=== PATIENT | male | born 1970 | race Caucasian/White ===

== ENCOUNTER 2023-04-24 09:27 | Inpatient (IN) | payer OTHER, SELFPAY ==
[2023-04-24] VITALS (10 sets, daily range): BP systolic 118–144; BP diastolic 65–90; PULSE 74–92; RESP 14–20; TEMP 36.5–37.1; O2SAT 86–98; BMI 47.2; BMI 44.4
--- NOTE | 2023-04-24 09:40 | CT_ITS ---
STUDY: CT LUMBAR SPINE WITHOUT CONTRAST REASON FOR EXAM: Male, 52 years old. Fall/trauma, neuro deficit BLE RADIATION DOSAGE (If Supplied By Facility): CTDIvol = ( 54.78 ) mGy, DLP = ( 1811.04 ) mGycm TECHNIQUE: The patient was scanned in a multi detector CT scanner. High resolution transaxial imaging was performed. Images were obtained from T12 vertebral level to S1 vertebral level. Sagittal and coronal images were reconstructed. Individualized dose optimization techniques were used for this CT. COMPARISON: None FINDINGS: Normal lumbar lordosis. There is no substantial scoliosis. Normal vertebrae of the lumbar spine. L1-2: Facet joint osteoarthritis and hypertrophy. Mild degree of bilateral neural foraminal stenosis. L2-3: Anterior spondylosis. Minimal disc space narrowing. No significant stenosis seen. L3-4: Anterior spondylosis. Facet joint osteoarthritis and hypertrophy mild to moderate degree of bilateral neural foraminal stenosis and posterior central canal stenosis due to hypertrophy of the ligamentum flavum. L4-5: Facet joint osteoarthritis and hypertrophy. Moderate degree of bilateral neural foraminal stenosis. Minimal diffuse posterior disc bulge. L5-S1: Facet joint osteoarthritis and hypertrophy. Bilateral neural foraminal stenosis. Normal visualized paraspinous soft tissue structures. CT/Spine Lumbar without Contrast IMPRESSION: Multilevel degenerative changes, as described above. Electronically Signed: Alex Colorado MD at 10:41 EST ,
--- NOTE | 2023-04-24 09:40 | RAD_ITS ---
STUDY: X-RAY - LEFT ANKLE REASON FOR EXAM: Male, 52 years old. Injury TECHNIQUE: 3 view(s) of the ankle. COMPARISON: None. FINDINGS: Findings suggestive of old injury of the medial malleolus. Normal medial and lateral malleoli. Normal tibiotalar articulation and ankle mortise. Calcaneal spurs. The visualized subtalar, talonavicular, calcaneocuboid and tarsal articulations are normal. The soft tissue structures are unremarkable. RAD/Ankle min 3 Views IMPRESSION: No acute abnormality is seen. Electronically Signed: Alex Colorado MD at 10:44 EST ,
--- NOTE | 2023-04-24 09:41 | ED.VIS.FALL ---
HPI HPI - Fall History of Present Illness Chief Complaint: Fall Informant: patient and EMS Narrative Narrative: Patient had a work-related fall. He states he just stepped off of a step, either slipped or left ankle gave out causing him to fall, he is not sure how he landed but when he did, he felt a snap in his low back and has had numbness tingling and burning pain from there all the way down to both lower extremities including his feet ever since. No weakness or numbness prior to this fall. Most of his pain is in his back and waist, comes all the way around. He does have pain in his left ankle as well. He was unable to get up from the ground and presents by EMS. Denies any recent illness. He denies loss of bowel or bladder continence. PFSH PFSH Medical History Gout Rheumatoid arthritis Allergy/AdvReac Type Severity Reaction Status Date / Time No Known Allergies Allergy Verified 04/24/23 09:28 Surgical History Hx of tonsillectomy Social History Smoking Status: Never smoker ROS ROS ED Constitutional Constitutional ED: Denies chills or fever(s) Eyes Eyes: Denies change in vision or diplopia ENT ENT ED: Denies ear pain, epistaxis, facial pain or rhinorrhea Cardiovascular Cardiovascular: Denies chest pain or palpitations Respiratory/Chest Respiratory/Chest: Denies cough or dyspnea Gastrointestinal Gastrointestinal: Denies abdominal pain, diarrhea, melena, nausea or vomiting Genitourinary Genitourinary ED: Denies dysuria or hematuria Musculoskeletal Musculoskeletal: Reports back pain and extremity pain; Denies neck pain Integumentary Denies abscess, Abrasions, laceration or rash Neurologic Neurologic: Reports paresthesias RLE and LLE and weakness; Denies confusion or headache(s) EXAM Physical Exam Const Vital Signs: 04/24/23 09:30 04/24/23 09:30 Temperature 98.4 F Temperature Source Oral Pulse Rate 92 Respiratory Rate 20 H Respiratory Effort Normal Non-Labored Blood Pressure 144/90 H Blood Pressure Mean 108 Pulse Ox 94 95 Oxygen Delivery Method Room Air Room Air Positive well nourished, well developed and obese General Appearance ED: well developed and NAD Nutritional Appearance: obese HEENT Reports TM's clear and nasal mucous membranes and turbinates normal atraumatic Face and Sinus: Negative for facial tenderness Tympanic Membrane ED: Yes TM's clear Eyes PERRL and EOMs intact bilaterally Visual Acuity: other Other Details: no entrapment or pain with extraocular movements Neck full ROM and supple General: Negative for tenderness Chest Wall inspection of chest normal and palpation of chest normal Chest: symmetrical chest wall rise; Negative for crepitus or tenderness Resp normal respiratory effort and clear to auscultation bilaterally Percussion: other equal BS bilat Cardio no murmurs Cardio Narrative: Bilateral 2+/4 dorsalis pedis and radial pulses Rate: regular rate Rhythm: regular rhythm GI normal to inspection, nondistended, normoactive bowel sounds, soft to palpation and non-tender Back/Spine normal ROM Back/Spine Narrative: Lumbar midline tenderness without obvious palpable step-off or signs of injury, no coccygeal/sacral focal bony tenderness. Cervical Spine: Negative for cervical spine tenderness Thoracic Spine / Upper Back: Negative for thoracic spinal tenderness Lumbar Spine / Lower Back: lumbar spinal tenderness L1, L2, L3 and L4 Extremity normal to inspection and full ROM Extremity Narrative: L ankle medial malleolus. Nontender lateral malleolus, base of the metatarsal, rest of the mid and forefoot, and the proximal fibula. All other joints and bony prominences of all 4 extremities are nontender, and without pain with ranging. When ranging his hips, he has some pain in his general pelvis area, the same burning numbness that he complains of throughout his legs. Able to range the left ankle. No deformity. General Extremety ED: Yes tenderness Neuro oriented x3, CN's II-XII intact bilaterally, moves all extremities and no focal motor deficits Neuro Narrative: Decreased sensation although it is grossly intact, bilateral lower extremities as well as perineum and lower abdominal wall, very distal. At the level of the umbilicus and several inches below this, sensation is intact and normal. He has pain with superficial skin palpation, suggesting dysesthesia below the level of approximately T11. Bilateral lower extremity DTRs are normal. No clonus. Downgoing toes with Babinski bilaterally. With regards to weakness, he is moving his legs well, all muscle groups seem to move with good strength, however he is limited somewhat due to pain in his back, so difficult to assess for details whether he is 5/5, 4+ or 4/5, etc. His strength is symmetric bilaterally. Perianal sensation is decreased, but normal rectal tone and anal wink. Devang Coma Scale: document GCS findings Spontaneous Obeys Commands Oriented 15 Sensorium / Orientation: awake and alert Psych mental status grossly normal and thought process normal Skin Skin Narrative: abrasions to left index and ring fingers, no lacerations Lesions: no lesions Rashes: no rashes MDM MDM MDM Narrative Medical decision making narrative: 1 view x-ray of the patient's pelvis is negative for acute fracture my interpretation, three-view x-ray of the left ankle was negative for acute fracture on my interpretation. Radiology in agreement. I skipped x-rays in favor of a CT of his lumbar spine however, given his neurologic symptoms. I reviewed the images and the report and I agree with it, it is negative for acute fracture. Patient has a sensory level, and he is starting to get spasms of his right lower extremity which I think may be neurologic. His DTRs are intact, strength seems good, but a stat MRI is indicated. He is sent for that, and in the meantime we are treating his pain. I reviewed the images of the MRI as well as the radiology report which I agree with, there is a discrete lesion coming from the posterior aspect of the spinal canal, impinging somewhat on the spinal cord without maritza compression but touching it, it is at the T10-11 level, consistent with the patient's approximate T11-12 sensory level clinically. I discussed with Dr. Bar on for spine, he reviewed the images and agrees that the patient requires a laminectomy. We will keep him n.p.o. and provide IV fluids and analgesia, plan for operating room either today or tomorrow, requested that I speak with hospitalist concerning admission. Discussed indication for steroids with Dr. Bar, he advises not to give steroids at this time. Lab Data Attestation: I reviewed the patient's lab results. Labs: Laboratory Results - last 24 hr 04/24/23 09:50 WBC 8.2 RBC 5.05 Hgb 14.5 Hct 45.7 MCV 90.5 MCH 28.7 MCHC 31.7 L RDW Std Deviation 43.7 RDW Coeff of Vasiliy 13.2 Plt Count 217 MPV 9.9 Immature Gran % (Auto) 0.500 Neut % (Auto) 66.1 Lymph % (Auto) 21.7 Converse % (Auto) 9.4 Eos % (Auto) 1.6 Baso % (Auto) 0.7 Absolute Neuts (auto) 5.4 Absolute Lymphs (auto) 1.79 Nucleated RBC % 0 Sodium 144 Potassium 4.1 Chloride 113 H Carbon Dioxide 26.0 Anion Gap 5 BUN 21 H Creatinine 1.52 H Estim Creat Clear Calc 58.70 Est GFR (MDRD) Af Amer 62 Est GFR (MDRD) Non-Af 51 L BUN/Creatinine Ratio 13.8 Glucose 159 H Calcium 8.8 Radiography Diagnostic Testing: Clinical Impression(s) from Imaging Studies Ankle X-Ray 04/24/23 09:40 IMPRESSION: No acute abnormality is seen. Electronically Signed: Alex Colorado MD at 10:44 EST , Lumbar Spine CT 04/24/23 09:40 IMPRESSION: Multilevel degenerative changes, as described above. Electronically Signed: Alex Colorado MD at 10:41 EST , Pelvis X-Ray 04/24/23 09:42 IMPRESSION: Joint space narrowing of both hip joints. Electronically Signed: Alex Colorado MD at 10:43 EST , Lumbar Spine MRI 04/24/23 11:08 IMPRESSION: 1. No MRI evidence of lumbar extruded disc fragment, disc protrusion or nerve root displacement. 2. Mild central canal stenosis at L4-L5 disc space level with an AP canal diameter of 10 mm secondary to mild dorsal epidural lipomatosis and developmentally short pedicles. Mild stenosis of the bilateral L4-L5 intervertebral neural foramina due to bilateral degenerative facet hypertrophy. 3. Mild stenosis of the bilateral L5-S1 intervertebral neural foramina due to osteophytic encroachment coming from the S1 superior articular facets. 4. Prominent right dorsolateral extradural defect at T10-T11 disc space level due to ossification of right posterior ligamentum flavum hypertrophy and moderate central canal stenosis with an AP canal diameter 7.4 mm. 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
--- NOTE | 2023-04-24 09:42 | RAD_ITS ---
STUDY: X-RAY - PELVIS REASON FOR EXAM: Male, 52 years old. Fall/injury TECHNIQUE: One view of the pelvis was obtained. COMPARISON: None. FINDINGS: There is a non-specific bowel gas pattern. Normal visualized soft tissue structures. Normal bilateral iliac wings, sacroiliac joints and visualized sacrum. Normal visualized bilateral superior and inferior pubic rami. Normal pubic symphysis. Normal ischial tuberosities. Normal visualized right femoral head. There is osteoarthritic spur formation of the right acetabular rim. There is mild articular joint space narrowing of the right hip. Normal visualized left femoral head. There is osteoarthritic spur formation of the left acetabular rim. There is mild articular joint space narrowing of the left hip. RAD/Pelvis 1 or 2 Views IMPRESSION: Joint space narrowing of both hip joints. Electronically Signed: Alex Colorado MD at 10:43 EST ,
[2023-04-24] MEDS: Ondansetron 4 MG/2 ML Vial IV (09:48)
[2023-04-24] MEDS: Morphine 4 MG/ML Syringe IV (09:49)
[2023-04-24 10:00] LABS: Absolute Lymphocyte Count 1.79 X10^3/uL (0.83-4.51); Absolute Neutrophil Count 5.4 X10^3/uL (2.0-7.7); Basophil# 0.06 X10^3/uL; Basophil% 0.7 % (0-1); Eosinophil# 0.13 X10^3/uL; Eosinophils% 1.6 % (0-5); Hematocrit 45.7 % (40-54); Hemoglobin 14.5 g/dL (13.0-16.5); Lymphocyte # 1.79 X10^3/ul (0.83-4.51); Lymphocyte % 21.7 % (19-41); Mean Corp Hgb Conc 31.7 g/dL (32-36); Mean Corpuscular Hgb 28.7 pg (27.0-32.0); Mean Corpuscular Volume 90.5 fL (80-94); Mean Platelet Vol. 9.9 fl (6.2-12.0); Monocyte# 0.77 X10^3/uL; Monocyte% 9.4 % (0-10); NRBC Flagged by Analyzer 0 % (0-5); Neutrophil # 5.44 X10^3/uL (2.7-7.7); Neutrophil % 66.1 % (47-70); Platelet Count 217 K/mm3 (150-450); RBC Distribution Width CV 13.2 % (11.6-14.6); RBC Distribution Width SD 43.7 fl (35.1-43.9); Red Blood Count 5.05 M/mm3 (4.6-6.2); White Blood Count 8.2 K/mm3 (4.4-11.0)
[2023-04-24 10:18] LABS: Anion Gap 5 (5-15); BUN 21 mg/dL (7-18); BUN/Creat Ratio 13.8 RATIO (10-20); Calcium,Total 8.8 mg/dL (8.5-10.1); Chloride 113 mmol/L (98-107); Creatinine, Serum 1.52 mg/dL (0.70-1.30); EST Glomerular Filtration Rate 51 mL/min (>60); Est Glom Filt Rate - Afr Amer 62 mL/min (>60); Glucose 159 mg/dL (74-106); Potassium 4.1 mmol/L (3.5-5.1); Sodium Level 144 mmol/L (136-145)
--- NOTE | 2023-04-24 11:08 | MRI_ITS ---
STUDY: MRI LUMBAR SPINE WITHOUT CONTRAST REASON FOR EXAM: Male, 52 years old. Low back injury, numbness T12 level down TECHNIQUE: Standardized fat and water weighted pulse sequences were obtained in the sagittal and axial planes. COMPARISON: CT lumbar spine without contrast 04/24/2023. FINDINGS: T10-T11: Normal endplates. Normal disc height, hydration and morphology. No ventral extradural defect but there is prominent right dorsolateral extradural defect suspiciously due to ossified ligamentum flavum. There is no associated cord compression but it is touching the dorsal surface of the spinal cord. Moderate right degenerative facet arthropathy. No significant left facet arthropathy. Moderate central canal stenosis with an AP canal diameter 7.4 mm. Normal bilateral lateral recesses. Normal bilateral intervertebral neural foramina. T11-T12: Normal endplates. Normal disc height, hydration and morphology. Mild right degenerative facet arthropathy. Normal left facet joint. Mild dorsal epidural lipomatosis. Normal central canal and bilateral lateral recesses. Normal bilateral intervertebral neural foramina. T12-L1: Normal endplates. Normal disc height, hydration and morphology. Normal bilateral facet joints. Normal central canal and bilateral lateral recesses. Normal bilateral intervertebral neural foramina. Normal lumbar lordosis. There is no substantial scoliosis. Normal conus medullaris that terminates at the mid L1 vertebral body level. L1-2: Normal endplates. Normal disc height, hydration and morphology. Normal bilateral facet joints. Normal central canal and bilateral lateral recesses. Normal bilateral intervertebral neural foramina. L2-3: Normal endplates. Normal disc height, hydration and morphology. Normal bilateral facet joints. Normal central canal and bilateral lateral recesses. Normal bilateral intervertebral neural foramina. L3-4: Normal endplates. Normal disc height, hydration and morphology. Normal bilateral facet joints. Normal central canal and bilateral lateral recesses. Normal bilateral intervertebral neural foramina. L4-5: Normal endplates. Normal disc height, hydration and morphology. No ventral extradural defect. Moderate asymmetric degenerative facet arthropathy. Mild dorsal epidural lipomatosis. Mild central canal stenosis with an AP canal diameter of 10 mm. Normal bilateral lateral recesses. Mild stenosis of the bilateral intervertebral neural foramina due to degenerative facet hypertrophy. L5-S1: Normal endplates. Normal disc height, hydration and morphology. Moderate right degenerative facet hypertrophy. Normal central canal and bilateral lateral recesses. Mild stenosis of the bilateral intervertebral neural foramina due to osteophytic encroachment coming from the S1 superior articular facets. Normal visualized sacral ala. Normal visualized paraspinous soft tissue structures. MRI/Spine Lumbar (Routine) IMPRESSION: 1. No MRI evidence of lumbar extruded disc fragment, disc protrusion or nerve root displacement. 2. Mild central canal stenosis at L4-L5 disc space level with an AP canal diameter of 10 mm secondary to mild dorsal epidural lipomatosis and developmentally short pedicles. Mild stenosis of the bilateral L4-L5 intervertebral neural foramina due to bilateral degenerative facet hypertrophy. 3. Mild stenosis of the bilateral L5-S1 intervertebral neural foramina due to osteophytic encroachment coming from the S1 superior articular facets. 4. Prominent right dorsolateral extradural defect at T10-T11 disc space level due to ossification of right posterior ligamentum flavum hypertrophy and moderate central canal stenosis with an AP canal diameter 7.4 mm. Electronically Signed: Braxton Carmichael MD at 12:53 EST ,
[2023-04-24] MEDS: HYDROmorphone 1 MG/ML Syringe IV ×2 (11:15→13:45)
[2023-04-24] MEDS: 0.9% Normal Saline (1000mL) 1,000 ML 100 ML IV (13:45)
--- NOTE | 2023-04-24 13:55 | PCM.HP.STD ---
HPI - General General Date of Admission: 04/24/23 Date of Service: 04/24/23 Chief Complaint: Thoracic and lumbar back pain after mechanical fall HPI Narrative KYLEIGH DE LEON, is a 52 M who presented to [facility] ED on 04/24/2023 with mid to low back pain after a mechanical fall. Patient seen at bedside in ED. Patient laying on his side in bed, conversing normally. Patient does not appear to be in acute distress but states he is limiting his movement, because he has a moderate level of mid to low back pain with movement. Patient does report paresthesias down both legs at this time. Patient states that he slept earlier today at work when he stepped awkwardly off of a step on the stairs. He is not sure how he landed but felt a snap in his mid to low back at that time. He has had numbness and tingling with burning pain in the low back and down his leg since that time. Patient denies any history of back injuries like this before. Patient lives at home with his in [place]. Patient is morbidly obese but has no significant issues with ambulation or completing ADLs at home. Patient otherwise denies bowel or bladder incontinence. Denies any chest pain, shortness of breath, fevers or chills, abdominal pain or discomfort. No other acute concerns at this time. [facility] Medical History (Updated 04/24/23 @ 18:33 by Calli Holcomb) Gout Migraines Non-smoker Rheumatoid arthritis Home Medications adalimumab 40 mg/0.4 mL subcutaneous pen kit (Humira(CF) Pen) 40 mg subcut Q7D rheumatoid arthritis 04/24/23 [History Last Taken 04/18/23] duloxetine 30 mg capsule,delayed release 30 mg PO DAILY rheumatoid arthritis 04/24/23 [History Last Taken 04/23/23] hydroxychloroquine 200 mg tablet 200 mg PO DAILY gout 04/24/23 [History Last Taken 04/24/23] prednisone 20 mg tablet 20 mg PO PRN gout 04/24/23 [History Last Taken Unknown] probenecid 200 mg DAILY gout 04/24/23 [History Last Taken 04/24/23] Allergy/AdvReac Type Severity Reaction Status Date / Time No Known Allergies Allergy Verified 04/24/23 18:34 Surgical History Hx of tonsillectomy Social History Smoking Status: Never smoker ROS Constitutional Constitutional: Denies chills, fatigue, fever(s) or weakness Eyes Eyes: Denies change in vision Cardiovascular Cardiovascular: Denies chest pain Respiratory/Chest Respiratory/Chest: Denies cough, shortness of breath at rest or shortness of breath with exertion Gastrointestinal Gastrointestinal: Denies abdominal pain Musculoskeletal Musculoskeletal: Reports back pain Neurologic Neurologic: Reports abnormal gait, numbness, paresthesias and tingling; Denies dizziness or focal weakness Vital Signs Vital Signs Vital Signs: 04/24/23 09:30 04/24/23 09:30 Temperature 98.4 F Temperature Source Oral Pulse Rate 92 Respiratory Rate 20 H Respiratory Effort Normal Non-Labored Blood Pressure 144/90 H Blood Pressure Mean 108 Pulse Ox 94 95 Oxygen Delivery Method Room Air Room Air Weight Weight: 149.3 kg Body Mass Index (BMI) 47.2 Physical Exam Const alert and oriented x3 Constitutional Narrative: Pleasant middle-age male, morbidly obese, laying on his side in bed, conversing normally. Patient appears to be in mild distress due to low back pain with any movement during my exam. General Appearance: cooperative HEENT normocephalic, head/scalp atraumatic, hearing grossly normal bilaterally, nasal mucous membranes and turbinates normal and moist oral mucous membranes Eyes PERRL, EOMs intact bilaterally and conjunctivae normal Neck full ROM, no lymphadenopathy and supple Lymph Lymphatic: no lymphadenopathy noted Chest inspection of chest normal Resp normal respiratory effort, normal air movement, no use of accessory muscles and clear to auscultation bilaterally Cardio regular rate, regular rhythm, no murmurs and peripheral pulses 2+ throughout GI normal to inspection, nondistended, normoactive bowel sounds, soft to palpation, non-tender and non-distended no CVA tenderness Back/Spine Back/Spine Narrative: Mild to moderate tenderness with outpatient down spinous processes of upper thoracic into lumbar vertebrae. Per muscular tenderness noted bilaterally in L-spine region. No severe point tenderness of any vertebrae. Extremity normal to inspection, full ROM and no pedal edema Skin no rashes or lesions noted Neuro moves all extremities and no focal motor deficits Speech: speech normal Psych mental status grossly normal Results Lab / Micro Data 04/24/23 09:50 04/24/23 09:50 Labs: Laboratory Results - last 24 hr 04/24/23 09:50: WBC 8.2, RBC 5.05, Hgb 14.5, Hct 45.7, MCV 90.5, MCH 28.7, MCHC 31.7 L, RDW Std Deviation 43.7, RDW Coeff of Vasiliy 13.2, Plt Count 217, MPV 9.9, Immature Gran % (Auto) 0.500, Neut % (Auto) 66.1, Lymph % (Auto) 21.7, Perkins % (Auto) 9.4, Eos % (Auto) 1.6, Baso % (Auto) 0.7, Absolute Neuts (auto) 5.4, Absolute Lymphs (auto) 1.79, Nucleated RBC % 0, Sodium 144, Potassium 4.1, Chloride 113 H, Carbon Dioxide 26.0, Anion Gap 5, BUN 21 H, Creatinine 1.52 H, Estim Creat Clear Calc 58.70, Est GFR (MDRD) Af Amer 62, Est GFR (MDRD) Non-Af 51 L, BUN/Creatinine Ratio 13.8, Glucose 159 H, Calcium 8.8 Imagaing Radiology Impression Ankle X-Ray 04/24/23 09:40 IMPRESSION: No acute abnormality is seen. Electronically Signed: Alex Colorado MD at 10:44 EST , Lumbar Spine CT 04/24/23 09:40 IMPRESSION: Multilevel degenerative changes, as described above. Electronically Signed: Alex Colorado MD at 10:41 EST , Pelvis X-Ray 04/24/23 09:42 IMPRESSION: Joint space narrowing of both hip joints. Electronically Signed: Alex Colorado MD at 10:43 EST , Lumbar Spine MRI 04/24/23 11:08 IMPRESSION: 1. No MRI evidence of lumbar extruded disc fragment, disc protrusion or nerve root displacement. 2. Mild central canal stenosis at L4-L5 disc space level with an AP canal diameter of 10 mm secondary to mild dorsal epidural lipomatosis and developmentally short pedicles. Mild stenosis of the bilateral L4-L5 intervertebral neural foramina due to bilateral degenerative facet hypertrophy. 3. Mild stenosis of the bilateral L5-S1 intervertebral neural foramina due to osteophytic encroachment coming from the S1 superior articular facets. 4. Prominent right dorsolateral extradural defect at T10-T11 disc space level due to ossification of right posterior ligamentum flavum hypertrophy and moderate central canal stenosis with an AP canal diameter 7.4 mm. Electronically Signed: Braxton Carmichael MD at 12:53 EST , Assessment & Plan Assessment/Plan (1) Thoracic spinal stenosis: (2) Injury of back due to fall: PLAN: Plan Patient is a 52-year-old male who presented to [facility] ED on 03/28/2023 with low back pain after a fall. 1. Acute thoracic and lumbar back pain, thoracic spinal stenosis Secondary to mechanical fall on day of admission. L-spine MRI in ED showed prominent defect at T10-11 disc space level with moderate central canal stenosis, mild stenosis in the low lumbar area. Patient reports mid to low back pain with bilateral lower extremity paresthesias. Denies urinary or stool incontinence. ? Admit under inpatient status to [facility]. Orthopedic surgery consulted. Dr. Bar evaluated the patient in the ED, planning for T10 laminectomy tomorrow. N.p.o. at midnight. Preoperative evaluation as noted below. Pain control with scheduled Tylenol, as needed p.o. oxycodone and IV Dilaudid. Bowel regimen ordered. Orthopedics also ordered IV Decadron and gabapentin for pain relief. PT/OT/case management consulted. 2. Preoperative evaluation ? NSQIP score: Patient has a below average risk of serious complications or any complications based on risk factors of age, male, mild systemic disease and elevated BMI. ? Labs: Hemoglobin 14.5, mildly elevated creatinine of 1.52 with estimated GFR 51, labs otherwise benign. Follow-up postop CBC and BMP. ? Imaging: See lumbar spine MRI findings above. Pelvic and ankle x-rays normal. Patient stable on room air, no need for chest x-ray. No need for further imaging at this time. ? EKG: EKG in ED showed normal sinus rhythm, no ST changes. ? Echo: Never completed, but has no risk factors or symptoms of heart disease that require echo to be done prior to operation. ? Medications: Okay to continue all of patient's home medications on day of procedure and going forward. ? Previous procedural complications: No previous operations requiring general anesthesia. ? Recommendation: Patient is medically optimized for procedure tomorrow, no further preoperative needs at this time. 3. Elevated creatinine Creatinine 1.52, BUN 21 on admit. Baseline unknown. Patient reports good urine output recently. ? Follow-up a.m. BMP. UA, urine protein to creatinine ratio ordered. 4. Elevated BP BP 140s to 150s systolic in the ED. No previous diagnosis of hypertension per patient. Seems most likely secondary to pain, but unclear if patient could have a degree of underlying essential hypertension. ? Monitor BP. No need to initiate antihypertensives at this time. Chronic medical conditions: ? Morbid obesity: BMI 44 on admit. Complicates care and patient's prognosis. ? Gout: Continue home allopurinol, probenecid. ? Rheumatoid arthritis: Continue home hydroxychloroquine. Okay to continue Humira post discharge. DVT prophylaxis: SCDs CODE STATUS: Full code, verified Expected disposition: TBD. Patient lives at home with his in [place], would like to go home on discharge if able but is open to the possibility of acute rehab if needed. Total clinical time spent by myself addressing the patient's medical issues, reviewing all the data, and collaborating with patient's care team: 55 minutes. Charges/Coding Visit Charges Inpatient E&M: 45404 Init Hosp L2
--- NOTE | 2023-04-24 14:00 | EKG12_ITS ---
Test Reason : Blood Pressure : / mmHG Vent. Rate : 084 BPM Atrial Rate : 089 BPM P-R Int : 152 ms QRS Dur : 116 ms QT Int : 386 ms P-R-T Axes : 049 042 012 degrees QTc Int : 456 ms Normal sinus rhythm with sinus arrhythmia Normal ECG Confirmed by MICHAEL MARIANO, ROBY ([id number]), photograph editor YULY GARCÍA ([id number]) on 04/25/2023 9:32:14 AM Referred By: ADELAIDE Confirmed By:ROBY RODRIGUEZ MD
--- NOTE | 2023-04-24 14:12 | NURSING ---
NO OLD EKGS
--- NOTE | 2023-04-24 14:13 | NURSING ---
MED SURG [facility] [place] SPINAL CORD INJURY
--- NOTE | 2023-04-24 14:23 | ED.RN ---
THIS RN AT PT BEDSIDE, THIS RN CONTACTS PT PER REQUEST. PT INFORMED THAT PT IS BEING PREPPED FOR SURGERY. THIS RN ALSO CALLS PT DENTURE WAXER JHON AND INFORMS HIM AT PT REQUEST. RICHIE PHONE NUMBER [phone]. [facility] TO BE NOTIFIED OF PT ADMISSION AND REQUIREMENT OF DRUG SCREEN FOR WORKMANS COMP.
--- NOTE | 2023-04-24 14:49 | ED.RN ---
THIS RN CONTACTED CORPORATE CARE AT THE [facility]. TOMY INFORMED THAT PATIENT WILL REQUIRE A DRUG SCREEN.
--- NOTE | 2023-04-24 15:47 | CON.PCM.OR_ITS ---
HPI Consult Data Date of Consult: 04/24/23 HPI Narrative HPI Narrative: KYLEIGH DE LEON, is a 52 M who presents with acute back pain and paresthesias of the bilateral lower extremities since a fall today. He states that he stepped off a curb and twisted his left ankle and lost his balance falling to the ground. He states that he had immediate onset of pain in the thoracolumbar region as well as burning and decreased sensation from the waist down. He denies head trauma or loss of consciousness. He was not able to get up after his fall and was brought to the ER by EMS. He was seen and evaluated. Image studies were performed including a lumbar MRI. Orthopedic spine has been consulted for evaluation and management. The patient was seen and examined. He is lying in bed resting comfortably. His pain is minimal while at rest. He describes burning and hypersensitivity in a bandlike distribution across the lower abdomen as well as in the genital area. He also describes mild decrease sensation in the bilateral lower extremities globally. He does state his symptoms have improved significantly since his fall. He denies any history of back surgeries or back injections. He states that he does have a history of mild episodic back pain for which he gets chiropractic treatments. He also has a history of rheumatoid arthritis and sees Dr. Gomez in [place] for this. [facility] Medical History Gout Rheumatoid arthritis Allergy/AdvReac Type Severity Reaction Status Date / Time No Known Allergies Allergy Verified 04/24/23 09:28 Surgical History Hx of tonsillectomy Social History Smoking Status: Never smoker Vital Signs Vital Signs Vital Signs: 04/24/23 09:30 04/24/23 09:30 04/24/23 12:00 Temperature 98.4 F Temperature Source Oral Pulse Rate 92 80 Respiratory Rate 20 H 16 Respiratory Effort Normal Non-Labored Blood Pressure 144/90 H Blood Pressure Mean 108 Pulse Ox 94 95 97 Oxygen Delivery Method Room Air Room Air Room Air 04/24/23 14:00 Temperature Temperature Source Pulse Rate 76 Respiratory Rate 16 Respiratory Effort Blood Pressure Blood Pressure Mean Pulse Ox 98 Oxygen Delivery Method Weight Weight: 329 lb 2.402 oz Body Mass Index (BMI) 47.2 Physical Exam Const alert, oriented x3 and no apparent distress General Appearance: cooperative, comfortable and well kempt HEENT normocephalic and head/scalp atraumatic Eyes EOMs intact bilaterally and conjunctivae normal Neck full ROM General: normal visual inspection Chest inspection of chest normal and palpation of chest normal Resp normal respiratory effort and normal air movement Effort and Inspection: able to speak in complete sentences Cardio regular rate and peripheral pulses 2+ throughout GI soft to palpation, non-tender and non-distended GI Narrative: Patient does have some hypersensitivity to light touch across the lower abdomen. Rectal exam performed by ER staff and reported to have rectal tone Rectal Exam: deferred external exam normal, testes normal, scrotum normal and no scrotal swelling Narrative: The patient does have hypersensitivity to light touch around the genital region Back/Spine Back/Spine Narrative: The patient does complain of some pain in the thoracolumbar region with movement Cervical Spine: cervical ROM normal Thoracic Spine / Upper Back: normal to inspection Lumbar Spine / Lower Back: normal to inspection Extremity normal to inspection, full ROM, normal capillary refill, no clubbing, cyanosis or edema and no calf tenderness Skin no rashes or lesions noted General Skin Exam: no breakdown Neuro oriented x3, CN's II-XII intact bilaterally, moves all extremities, no focal motor deficits, no sensory deficits noted and deep tendon reflexes 2+ bilaterally Neuro Narrative: The patient reports mild decrease sensation globally throughout the lower extremities but sensation is intact in all dermatomes Motor Exam: strength 5/5 throughout and muscle tone normal throughout Lab / Micro Data 04/24/23 09:50 04/24/23 09:50 Labs: Laboratory Results - last 24 hr 04/24/23 09:50: WBC 8.2, RBC 5.05, Hgb 14.5, Hct 45.7, MCV 90.5, MCH 28.7, MCHC 31.7 L, RDW Std Deviation 43.7, RDW Coeff of Vasiliy 13.2, Plt Count 217, MPV 9.9, Immature Gran % (Auto) 0.500, Neut % (Auto) 66.1, Lymph % (Auto) 21.7, Ch[place]ot % (Auto) 9.4, Eos % (Auto) 1.6, Baso % (Auto) 0.7, Absolute Neuts (auto) 5.4, Absolute Lymphs (auto) 1.79, Nucleated RBC % 0, Sodium 144, Potassium 4.1, Chloride 113 H, Carbon Dioxide 26.0, Anion Gap 5, BUN 21 H, Creatinine 1.52 H, Estim Creat Clear Calc 58.70, Est GFR (MDRD) Af Amer 62, Est GFR (MDRD) Non-Af 51 L, BUN/Creatinine Ratio 13.8, Glucose 159 H, Calcium 8.8 04/24/23 10:50: PT 13.0, INR 1.0 Rhythm Strip Rhythm Strip: Sinus Rhythm Rate: 90 Ectopy: None Imagaing Radiology Impression Ankle X-Ray 04/24/23 09:40 IMPRESSION: No acute abnormality is seen. Electronically Signed: Alex Colorado MD at 10:44 EST , Lumbar Spine CT 04/24/23 09:40 IMPRESSION: Multilevel degenerative changes, as described above. Electronically Signed: Alex Colorado MD at 10:41 EST , Pelvis X-Ray 04/24/23 09:42 IMPRESSION: Joint space narrowing of both hip joints. Electronically Signed: Alex Colorado MD at 10:43 EST , Lumbar Spine MRI 04/24/23 11:08 IMPRESSION: 1. No MRI evidence of lumbar extruded disc fragment, disc protrusion or nerve root displacement. 2. Mild central canal stenosis at L4-L5 disc space level with an AP canal diameter of 10 mm secondary to mild dorsal epidural lipomatosis and developmentally short pedicles. Mild stenosis of the bilateral L4-L5 intervertebral neural foramina due to bilateral degenerative facet hypertrophy. 3. Mild stenosis of the bilateral L5-S1 intervertebral neural foramina due to osteophytic encroachment coming from the S1 superior articular facets. 4. Prominent right dorsolateral extradural defect at T10-T11 disc space level due to ossification of right posterior ligamentum flavum hypertrophy and moderate central canal stenosis with an AP canal diameter 7.4 mm. Electronically Signed: Braxton aCrmichael MD at 12:53 EST , Assessment & Plan Assessment/Plan (1) Thoracic spinal stenosis: PLAN: Plan I had a lengthy discussion with the patient. I reviewed his imaging with him. MRI of the lumbar spine dated 04/24/2023 shows significant stenosis at the level of T10, which I feel is contributing to his complaints. After discussing the risk benefits and alternatives and answering all of his questions I recommend a T10 laminectomy decompression. We discussed the procedure in detail along with expected outcome and recovery and he agrees to proceed. The patient has been admitted. I recommend he only get up with assistance. I will order IV Decadron and gabapentin to see if this helps with the symptoms. We will keep him n.p.o. after midnight and plan for surgery tomorrow morning. Discharge will depend on how well the patient is mobilizing after surgery as to whether he goes home to follow-up with me in clinic or possibly for inpatient rehab. He understands and agrees with the treatment plan
[2023-04-24] MEDS: Lactated Ringers 1,000 ML 75 ML IV (18:44)
[2023-04-24] MEDS: Acetaminophen 500 MG Tablet 1000 MG PO (18:44)
[2023-04-24] MEDS: HYDROmorphone 0.5 MG/0.5 ML SYRINGE IV (18:53)
[2023-04-24] MEDS: oxyCODONE 5 MG Tablet PO (21:08)
[2023-04-24] MEDS: Senna Tablet 1 TABLET PO (21:09)
[2023-04-25] VITALS (23 sets, daily range): BP systolic 95–131; BP diastolic 51–86; PULSE 65–100; RESP 12–20; TEMP 36.1–36.9; O2SAT 83–98; BMI 44.4
[2023-04-25] MEDS: oxyCODONE 5 MG Tablet PO ×4 (01:27→20:56)
[2023-04-25] MEDS: Acetaminophen 500 MG Tablet 1000 MG PO ×2 (01:30→16:52)
[2023-04-25 05:27] LABS: Hematocrit 43.8 % (40-54); Hemoglobin 13.5 g/dL (13.0-16.5); Mean Corp Hgb Conc 30.8 g/dL (32-36); Mean Corpuscular Hgb 28.8 pg (27.0-32.0); Mean Corpuscular Volume 93.4 fL (80-94); Mean Platelet Vol. 9.5 fl (6.2-12.0); Platelet Count 184 K/mm3 (150-450); RBC Distribution Width CV 13.5 % (11.6-14.6); RBC Distribution Width SD 46.1 fl (35.1-43.9); Red Blood Count 4.69 M/mm3 (4.6-6.2); White Blood Count 7.4 K/mm3 (4.4-11.0)
[2023-04-25 05:52] LABS: Anion Gap 5 (5-15); BUN 16 mg/dL (7-18); BUN/Creat Ratio 12.6 RATIO (10-20); Calcium,Total 8.2 mg/dL (8.5-10.1); Chloride 112 mmol/L (98-107); Creatinine, Serum 1.27 mg/dL (0.70-1.30); EST Glomerular Filtration Rate 63 mL/min (>60); Est Glom Filt Rate - Afr Amer 76 mL/min (>60); Estimated Creatinine Clearance 70.25 ml/min; Glucose 120 mg/dL (74-106); Sodium Level 144 mmol/L (136-145)
[2023-04-25] MEDS: Lactated Ringers 1,000 ML 75 ML IV ×2 (06:17→13:33)
--- NOTE | 2023-04-25 07:49 | PN.HOSP_ITS ---
Reason for Visit Reason for Visit: Diagnoses Spinal stenosis, thoracic region (04/24/23) Unspecified injury of lower back, initial encounter (04/24/23) Unspecified fall, initial encounter (04/24/23) Subjective Subjective Patient seen postop, when he sleeps he begins to snore slightly and has apneic episodes and sats drop, reports he snores at home, suspect sleep apnea, patient to be started on BiPAP, when he is awake O2 sat adequate Objective Data Objective Data Vital Signs: Vital Signs Temp Pulse Resp BP Pulse Ox O2 Del Method O2 Flow Rate 97.3 F L 70 20 H 129/83 H 96 Nasal Cannula 2 04/25/23 06:11 04/25/23 06:11 04/25/23 06:11 04/25/23 06:11 04/25/23 06:11 04/25/23 06:11 04/25/23 06:11 Oxygen Flow Rate (L/min) 2 Oxygen Delivery Method Nasal Cannula Weight: 140.264 kg Body Mass Index (BMI) 44.4 Intake & Output: Intake and Output for Last 24 Hours 04/23/23 04/24/23 04/25/23 23:59 23:59 23:59 Intake Total 483.33 / 483.33 916.25 / 916.25 Output Total 50 / 50 700 / 700 Balance 433.33 / 433.33 216.25 / 216.25 Lab / Micro Data 04/25/23 05:20 04/25/23 05:20 Labs: Laboratory Results - last 24 hr 04/24/23 09:50: WBC 8.2, RBC 5.05, Hgb 14.5, Hct 45.7, MCV 90.5, MCH 28.7, MCHC 31.7 L, RDW Std Deviation 43.7, RDW Coeff of Vasiliy 13.2, Plt Count 217, MPV 9.9, Immature Gran % (Auto) 0.500, Neut % (Auto) 66.1, Lymph % (Auto) 21.7, Turner % (Auto) 9.4, Eos % (Auto) 1.6, Baso % (Auto) 0.7, Absolute Neuts (auto) 5.4, Absolute Lymphs (auto) 1.79, Nucleated RBC % 0, Sodium 144, Potassium 4.1, Chloride 113 H, Carbon Dioxide 26.0, Anion Gap 5, BUN 21 H, Creatinine 1.52 H, Estim Creat Clear Calc 58.70, Est GFR (MDRD) Af Amer 62, Est GFR (MDRD) Non-Af 51 L, BUN/Creatinine Ratio 13.8, Glucose 159 H, Calcium 8.8 04/24/23 10:50: PT 13.0, INR 1.0 04/25/23 05:20: WBC 7.4, RBC 4.69, Hgb 13.5, Hct 43.8, MCV 93.4, MCH 28.8, MCHC 30.8 L, RDW Std Deviation 46.1 H, RDW Coeff of Vasiliy 13.5, Plt Count 184, MPV 9.5, Sodium 144, Potassium 4.0, Chloride 112 H, Carbon Dioxide 27.0, Anion Gap 5, BUN 16, Creatinine 1.27, Estim Creat Clear Calc 70.25, Est GFR (MDRD) Af Amer 76, Est GFR (MDRD) Non-Af 63, BUN/Creatinine Ratio 12.6, Glucose 120 H, Calcium 8.2 L Radiography Diagnostic Testing: Radiology Impression Ankle X-Ray 04/24/23 09:40 IMPRESSION: No acute abnormality is seen. Electronically Signed: Alex Colorado MD at 10:44 EST , Lumbar Spine CT 04/24/23 09:40 IMPRESSION: Multilevel degenerative changes, as described above. Electronically Signed: Alex Colorado MD at 10:41 EST , Pelvis X-Ray 04/24/23 09:42 IMPRESSION: Joint space narrowing of both hip joints. Electronically Signed: Alex Colorado MD at 10:43 EST , Lumbar Spine MRI 04/24/23 11:08 IMPRESSION: 1. No MRI evidence of lumbar extruded disc fragment, disc protrusion or nerve root displacement. 2. Mild central canal stenosis at L4-L5 disc space level with an AP canal diameter of 10 mm secondary to mild dorsal epidural lipomatosis and developmentally short pedicles. Mild stenosis of the bilateral L4-L5 intervertebral neural foramina due to bilateral degenerative facet hypertrophy. 3. Mild stenosis of the bilateral L5-S1 intervertebral neural foramina due to osteophytic encroachment coming from the S1 superior articular facets. 4. Prominent right dorsolateral extradural defect at T10-T11 disc space level due to ossification of right posterior ligamentum flavum hypertrophy and moderate central canal stenosis with an AP canal diameter 7.4 mm. Electronically Signed: Braxton Carmichael MD at 12:53 EST , Rhythm Strip Rhythm Strip: Sinus Rhythm Rate: 90 Ectopy: None Physical Exam Narrative General: Wakes up and answers questions but tired, seen postop HEENT: Atraumatic, normocephalic Eyes: Anicteric, normal conjunctiva, extraocular movements grossly intact Neck: Supple Respiratory: Clear to auscultation bilaterally, normal respiratory effort but does snore has apneic episodes and sleeping Cardiovascular: Regular rate and rhythm GI: Soft, nontender, nondistended Extremities: No edema Musculoskeletal: Moving all extremities Neuro: No overt focal neurological deficits Skin: No rashes appreciated Psych: Cooperative Assessment & Plan Assessment/Plan (1) Thoracic spinal stenosis: (2) Injury of back due to fall: PLAN: Plan Patient is a 52-year-old male who presented to [facility] ED on 03/28/2023 with low back pain after a fall. #Acute thoracic and lumbar back pain, thoracic spinal stenosis Secondary to mechanical fall on day of admission. L-spine MRI in ED showed prom inent defect at T10-11 disc space level with moderate central canal stenosis, mild stenosis in the low lumbar area. Patient reports mid to low back pain with bilateral lower extremity paresthesias. Denies urinary or stool incontinence. ? Admit under inpatient [facility]. Orthopedic surgery consulted. Dr. Bar evaluated the patient in the ED, planning for T10 laminectomy tomorrow. N.p.o. at midnight. Preoperative evaluation as noted below. Pain control with scheduled Tylenol, as needed p.o. oxycodone and IV Dilaudid. Bowel regimen ordered. Orthopedics also ordered IV Decadron and gabapentin for pain relief. PT/OT/case management consulted. -04/25: Pain control, PT/OT, laminectomy today #Suspected KIMBERLY -Postop patient has O2 sats transiently dropped and this appears to correlate with him falling asleep and having intermittent apneic episodes and then sats improve, BiPAP nightly and now -He will need outpatient sleep study #Preoperative evaluation ? NSQIP score: Patient has a below average risk of serious complications or any complications based on risk factors of age, male, mild systemic disease and elevated BMI. ? Labs: Hemoglobin 14.5, mildly elevated creatinine of 1.52 with estimated GFR 51, labs otherwise benign. Follow-up postop CBC and BMP. ? Imaging: See lumbar spine MRI findings above. Pelvic and ankle x-rays normal. Patient stable on room air, no need for chest x-ray. No need for further imaging at this time. ? EKG: EKG in ED showed normal sinus rhythm, no ST changes. ? Echo: Never completed, but has no risk factors or symptoms of heart disease that require echo to be done prior to operation. ? Medications: Okay to continue all of patient's home medications on day of procedure and going forward. ? Previous procedural complications: No previous operations requiring general anesthesia. ? Recommendation: Patient is medically optimized for procedure tomorrow, no further preoperative needs at this time. #Elevated creatinine Creatinine 1.52, BUN 21 on admit. Baseline unknown. Patient reports good urine output recently. ? Follow-up a.m. BMP. UA, urine protein to creatinine ratio ordered. -04/25: Improved today, supportive care, encourage p.o. intake postop. Patient on fluids #Elevated BP BP 140s to 150s systolic in the ED. No previous diagnosis of hypertension per patient. Seems most likely secondary to pain, but unclear if patient could have a degree of underlying essential hypertension. ? Monitor BP. No need to initiate antihypertensives at this time. -04/25: Pain control, BP 129/83 this a.m. Chronic medical conditions: ? Morbid obesity: BMI 44 on admit. Complicates care and patient's prognosis. ? Gout: Continue home allopurinol, probenecid. ? Rheumatoid arthritis: Continue home hydroxychloroquine. Okay to continue Humira post discharge. DVT prophylaxis: SCDs CODE STATUS: Full code, verified Expected disposition: TBD. Patient lives at home with his in [place], would like to go home on discharge if able but is open to the possibility of acute rehab if needed. Total clinical time spent by myself addressing the patient's medical issues, reviewing all the data, and collaborating with patient's care team: 35 minutes. Charges/Coding Visit Charges Inpatient E&M: 95372 Subs Hosp L2
--- NOTE | 2023-04-25 08:18 | RAD_ITS ---
STUDY: X-RAY CHEST REASON FOR EXAM: Male, 52 years old. Pre op TECHNIQUE: Single AP portable view of the chest. COMPARISON: None. FINDINGS: Mild elevation of the right hemidiaphragm. Questionable 1.3 cm x 1.6 cm noncalcified nodule in the medial aspect of the right upper lobe. Correlation with the CT scans recommended. There is no demonstrated pleural abnormality. Normal size heart. Normal mediastinum and kirsten. Normal visualized pulmonary arteries. Normal visualized aortic arch and descending thoracic aorta. Normal visualized thoracic spine. Normal visualized ribs, clavicles, and shoulders. There is no demonstrated abnormality of the visualized soft tissue structures of the upper abdomen. RAD/Chest 1 View (Portable) IMPRESSION: Questionable 1.3 cm x 1.6 cm noncalcified nodule in the medial aspect of the right upper lobe. Correlation with a CT scan is recommended. Electronically Signed: Alex Colorado MD at 8:47 EST ,
[2023-04-25 08:59] LABS: Prothrombin Time (Protime)PT. 13.2 SECONDS (11.7-14.9)
--- NOTE | 2023-04-25 10:00 | CASEMGMT ---
[place]: Call received from Lurdes Salazar, Sponge Buffer Nurse with [employer] [employer]. Pt's livestock caretaker will be Jnen Zaragoza whose phone # is [phone], email: [email or web address]. Pt's claim # is: [id number]. Chris Kaplan RN CM
--- NOTE | 2023-04-25 10:42 | PN.ORTHO_ITS ---
Subjective Subjective Seen and examined postop. Resting comfortably. Pain controlled. No complaints Objective Data Objective Data Vital Signs: Vital Signs Temp Pulse Resp BP Pulse Ox O2 Del Method O2 Flow Rate 98.0 F 65 16 131/86 H 94 Room Air 2 04/25/23 08:00 04/25/23 08:00 04/25/23 08:00 04/25/23 08:00 04/25/23 08:00 04/25/23 09:00 04/25/23 06:11 Oxygen Flow Rate (L/min) 2 Oxygen Delivery Method Room Air Weight: 309 lb 3.654 oz Body Mass Index (BMI) 44.4 Intake & Output: Intake and Output for Last 24 Hours 04/23/23 04/24/23 04/25/23 23:59 23:59 23:59 Intake Total 483.33 / 483.33 916.25 / 916.25 Output Total 50 / 50 1200 / 1200 Balance 433.33 / 433.33 -283.75 / -283.75 Lab / Micro Data 04/28/23 06:45 04/27/23 06:25 Labs: Laboratory Results - last 24 hr 04/24/23 10:50: PT 13.0, INR 1.0 04/25/23 05:20: WBC 7.4, RBC 4.69, Hgb 13.5, Hct 43.8, MCV 93.4, MCH 28.8, MCHC 30.8 L, RDW Std Deviation 46.1 H, RDW Coeff of Vasiliy 13.5, Plt Count 184, MPV 9.5, Sodium 144, Potassium 4.0, Chloride 112 H, Carbon Dioxide 27.0, Anion Gap 5, BUN 16, Creatinine 1.27, Estim Creat Clear Calc 70.25, Est GFR (MDRD) Af Amer 76, Est GFR (MDRD) Non-Af 63, BUN/Creatinine Ratio 12.6, Glucose 120 H, Calcium 8.2 L 04/25/23 08:30: PT 13.2, INR 1.0 Radiography Diagnostic Testing: Radiology Impression Ankle X-Ray 04/24/23 09:40 IMPRESSION: No acute abnormality is seen. Electronically Signed: Alex Colorado MD at 10:44 EST , Pelvis X-Ray 04/24/23 09:42 IMPRESSION: Joint space narrowing of both hip joints. Electronically Signed: Alex Colorado MD at 10:43 EST , Lumbar Spine MRI 04/24/23 11:08 IMPRESSION: 1. No MRI evidence of lumbar extruded disc fragment, disc protrusion or nerve root displacement. 2. Mild central canal stenosis at L4-L5 disc space level with an AP canal diameter of 10 mm secondary to mild dorsal epidural lipomatosis and developmentally short pedicles. Mild stenosis of the bilateral L4-L5 intervertebral neural foramina due to bilateral degenerative facet hypertrophy. 3. Mild stenosis of the bilateral L5-S1 intervertebral neural foramina due to osteophytic encroachment coming from the S1 superior articular facets. 4. Prominent right dorsolateral extradural defect at T10-T11 disc space level due to ossification of right posterior ligamentum flavum hypertrophy and moderate central canal stenosis with an AP canal diameter 7.4 mm. Electronically Signed: Braxton Carmichael MD at 12:53 EST Reading Location ID and State: [facility] / [place] , Service support , Chest X-Ray 04/25/23 08:18 IMPRESSION: Questionable 1.3 cm x 1.6 cm noncalcified nodule in the medial aspect of the right upper lobe. Correlation with a CT scan is recommended. Electronically Signed: Alex Colorado MD at 8:47 EST , Rhythm Strip Rhythm Strip: Sinus Rhythm Rate: 90 Ectopy: None Physical Exam Const alert and no apparent distress General Appearance: cooperative, comfortable and well kempt HEENT normocephalic and head/scalp atraumatic Eyes EOMs intact bilaterally and conjunctivae normal Neck full ROM General: normal visual inspection Chest inspection of chest normal and palpation of chest normal Resp normal respiratory effort and normal air movement Cardio regular rate, regular rhythm and peripheral pulses 2+ throughout GI soft to palpation, non-tender and non-distended Back/Spine Back/Spine Narrative: Dressing clean dry and intact Cervical Spine: cervical ROM normal Thoracic Spine / Upper Back: normal to inspection Lumbar Spine / Lower Back: normal to inspection Extremity normal to inspection, full ROM, normal capillary refill, no clubbing, cyanosis or edema and no calf tenderness Skin no rashes or lesions noted General Skin Exam: no breakdown Neuro oriented x3, CN's II-XII intact bilaterally, moves all extremities, no focal motor deficits, no sensory deficits noted and deep tendon reflexes 2+ bilaterally Motor Exam: muscle tone normal throughout Assessment & Plan Assessment/Plan (1) Thoracic spinal stenosis: PLAN: Okay to return to floor See orders Pain control and mobilization as tolerated Weight-bear as tolerated in left ankle boot Discharge planning. Home versus rehab depending on how well the patient is mobilizing and operator/assistant foreman needs Follow-up with Dr. Bar in 3 weeks Follow-up with orthopedics, Dr. Joseph Montez, for left ankle in 1 week
--- NOTE | 2023-04-25 10:42 | PCM.OPRPT ---
Report of Operation Date of Procedure: 04/25/23 Description of Surgical Findings:: Preop diagnosis: 1. Thoracic stenosis T10-11 with spondylosis Postop diagnosis: 1. Thoracic stenosis T10 with spondylosis Procedures performed: 1. Thoracic 10 laminectomy 2. T10-11 bilateral foraminotomies Statement of medical necessity: The patient is a 52-year-old male with intractable back pain with paresthesias from the waist down. Image studies confirm the above diagnoses. They have opted for operative intervention understanding the risk to include but not limited to infection, bleeding, damage to nerves arteries and veins, possibility of spinal fluid leak, paralysis, continued pain, need for further surgery, deep vein thrombosis, pulmonary embolism, heart attack, risk of stroke or . Description of the procedure: The patient was identified in the preoperative holding area. There they received preoperative IV antibiotics and was then transferred to the operative suite. Once in the operative suite after general endotracheal anesthesia was established, the patient was positioned prone on the Erich operating table. All bony prominences were padded accordingly. The thoracolumbar spine was prepped and draped in a standard fashion. Bear hugger's were not turned on until the drapes were placed and sealed with Ioban. A midline incision was made and taken down to the fascia. The fascia was divided and subperiosteal dissection was taken down to the level of the T10-11 bilateral facet joints. Deep retractors were placed. A bone scalpel was used to make cuts in the lamina and then a series of rongeurs and Kerrisons were used removing the spinous process and lamina of T10. Then foraminotomies were performed of T10-11 bilaterally decompressing the bilateral nerve roots. Tisseel was placed over the dura as a hemostatic agent. The fascia was closed with #1 Vicryl, subcutaneous with 2-0 Vicryl and skin with 2-0 nylon. A sterile dressing was applied with 4 x 4's ABD and tape. Sponge instrument and needle counts were correct at the end of the case. The patient was extubated and taken to the PACU without incident Type of Anesthesia: General Estimated Blood Loss (mL): 20 cc Fluids Replaced: 1800 cc Complications None Admit VTE Documentation VTE Present on Admission: No
[2023-04-25] MEDS: Cefazolin 3 GM in 0.9% Normal Saline (100mL Bag) 100 ML IV (11:25)
--- NOTE | 2023-04-25 11:30 | RAD_ITS ---
PROCEDURE: T10 laminectomy. DATE OF EXAMINATION: April 25, 2023. INDICATION: Male, 52 years old. T10 laminectomy. FLUOROSCOPY TIME (if supplied): (9.5 seconds) minutes/seconds. 4.98 mGy. One image was submitted. RAD/Lumbar Spine 2 or 3 Views IMPRESSION: Intraoperative imaging provided for T10 laminectomy. Electronically Signed: Alex Colorado MD at 13:55 EST ,
[2023-04-25] MEDS: THROMBIN (RECOMBINANT) 20,000 UNIT VIAL 20000 UNIT TOPICAL (11:47)
[2023-04-25] MEDS: Bupivacaine 0.25% 30 ML Vial (12:45)
--- NOTE | 2023-04-25 15:23 | NURSING ---
Lethargic. awakens with voice. SP02 76% to 90% on 3L NC when first came back from PACU. This RN attached pt to continous spo2 monitor. Pt snoring very loudly. Pt and state he does not have sleep apnea. O2 increased to 5L but again dips down into the 60's-70's and comes up to 90-91 for approimately 10 sec and then goes back down into the 70's while pt sleeping. Dr. Weiss aware and wants to put pt on bipap but aware of [facility] policy that pt has to be moved to PCU for first time bipap. [place], Nursing Channel Cementer aware.
--- NOTE | 2023-04-25 15:40 | NURSING ---
Attempted to use the urinal by sitting on the edge of the bed. unsuccessful, could not void. Will continue to monitor.
--- NOTE | 2023-04-25 15:45 | CASEMGMT ---
RN CM Assessment: Face to Face with pt for initial transition planning/care coordination assessment. RN CM introduced self and role at [facility], pt voices understanding and consents to assessment. Pt is A&O x4 and answers all questions appropriately at this time. Pt lying in bed with at bedside and respiratory in room. Care providers, pharmacy, and demographics verified/updated. Admitting Dx:spinal cord injury PCP:Thomas Specialists: diane Newsome Pharmacy:[facility] Retail Insurance:[employer], [employer] Prescription Benefit: yes LNOK:Molly Bowers, Living Arrangements: Pt lives with and son in a two story home with 5-6 steps to enter with a rail. Pt reports prior to injury he was I in ADL's. Pt denies concerns at home. Transportation: Pt drives self and denies concerns with transportation. Pt able to transport until he is able. DME:walker, crutches HHC/SNF:Denies hx of Pt had surgery today and has not been oob. Pt states he is unsure of his dc disposition as ortho stated he may need rehab prior to returning home. Pt aware that RN CM will follow for therapy rec. Pt states no further concerns/needs. Advised pt to ask CM if any further question/concerns/needs arise, voices understanding. Pt Goal:TBD Plan:TBD pending therapy
--- NOTE | 2023-04-25 15:53 | CASEMGMT ---
Discharge Planning A list of?SNF providers including quality and resource use data and consistent with the patient's preferred geographic region, medical needs, and insurance network was created in [employer] Guide.? This list was provided to the RACHELE. Mariela Khan, Discharge Planning Asst
--- NOTE | 2023-04-25 17:40 | NURSING ---
This Rn Took Bipap off for pt request. Spo2 98% on bipap. pt more awake now. 5L NC on and pt seems to be staying at 93% via NC.
[2023-04-25] MEDS: Senna Tablet 1 TABLET PO (20:58)
[2023-04-25] MEDS: 0.9% Saline Lock 10 ML Syringe IV ×2 (20:58→23:20)
[2023-04-25] MEDS: HYDROmorphone 0.5 MG/0.5 ML SYRINGE IV (23:19)
[2023-04-26] VITALS (15 sets, daily range): BP systolic 116–145; BP diastolic 66–94; PULSE 58–96; RESP 14–20; TEMP 36.5–36.8; O2SAT 57–100
[2023-04-26] MEDS: oxyCODONE 5 MG Tablet PO ×3 (01:39→21:44)
[2023-04-26] MEDS: Acetaminophen 500 MG Tablet 1000 MG PO ×3 (01:40→18:18)
--- NOTE | 2023-04-26 03:36 | NURSING ---
Patient has only worn the CPAP for a very short period of time tonight, despite coaxing by this RN. Has remained on 9L HF; however, desats to 79%. Mouth breather.
[2023-04-26 08:57] LABS: Absolute Lymphocyte Count 1.17 X10^3/uL (0.83-4.51); Absolute Neutrophil Count 8.8 X10^3/uL (2.0-7.7); Basophil# 0.02 X10^3/uL; Basophil% 0.2 % (0-1); Eosinophil# 0.02 X10^3/uL; Eosinophils% 0.2 % (0-5); Hemoglobin 12.8 g/dL (13.0-16.5); Lymphocyte # 1.17 X10^3/ul (0.83-4.51); Lymphocyte % 10.7 % (19-41); Mean Corp Hgb Conc 31.2 g/dL (32-36); Mean Corpuscular Hgb 28.7 pg (27.0-32.0); Mean Corpuscular Volume 91.9 fL (80-94); Mean Platelet Vol. 10.3 fl (6.2-12.0); Monocyte# 0.88 X10^3/uL; NRBC Flagged by Analyzer 0 % (0-5); Neutrophil # 8.82 X10^3/uL (2.7-7.7); Neutrophil % 80.5 % (47-70); Platelet Count 211 K/mm3 (150-450); RBC Distribution Width SD 43.4 fl (35.1-43.9); Red Blood Count 4.46 M/mm3 (4.6-6.2)
--- NOTE | 2023-04-26 09:30 | PN.HOSP_ITS ---
Reason for Visit Reason for Visit: Diagnoses Spinal stenosis, thoracic region (04/24/23) Unspecified injury of lower back, initial encounter (04/24/23) Unspecified fall, initial encounter (04/24/23) Subjective Subjective Sitting up in chair, awake and alert today, reports he still has some pain in tightness around the lower waist area and had some back pain last night which is improved Objective Data Objective Data Vital Signs: Vital Signs Temp Pulse Resp BP Pulse Ox O2 Del Method O2 Flow Rate 97.9 F 77 20 H 133/87 H 100 Nasal Cannula 9 04/26/23 06:42 04/26/23 06:42 04/26/23 06:42 04/26/23 06:42 04/26/23 06:45 04/26/23 06:45 04/26/23 06:45 FiO2 60 04/26/23 05:22 Oxygen Flow Rate (L/min) 9 Oxygen Delivery Method Nasal Cannula Weight: 140.264 kg Body Mass Index (BMI) 44.4 Intake & Output: Intake and Output for Last 24 Hours 04/24/23 04/25/23 04/26/23 23:59 23:59 23:59 Intake Total 483.33 / 483.33 2561.25 / 2561.25 Output Total 50 / 50 1700 / 1975 800 / 800 Balance 433.33 / 433.33 861.25 / 586.25 -800 / -800 Lab / Micro Data 04/26/23 08:00 04/25/23 05:20 Labs: Laboratory Results - last 24 hr 04/26/23 08:00: WBC 11.0, RBC 4.46 L, Hgb 12.8 L, Hct 41.0, MCV 91.9, MCH 28.7, MCHC 31.2 L, RDW Std Deviation 43.4, RDW Coeff of Vasiliy 13.0, Plt Count 211, MPV 10.3, Immature Gran % (Auto) 0.400, Neut % (Auto) 80.5 H, Lymph % (Auto) 10.7 L, Vil[place] % (Auto) 8.0, Eos % (Auto) 0.2, Baso % (Auto) 0.2, Absolute Neuts (auto) 8.8 H, Absolute Lymphs (auto) 1.17, Nucleated RBC % 0 Radiography Diagnostic Testing: Radiology Impression Lumbar Spine X-Ray 04/25/23 11:30 IMPRESSION: Intraoperative imaging provided for T10 laminectomy. Electronically Signed: Alex Colorado MD at 13:55 EST , Rhythm Strip Rhythm Strip: Sinus Rhythm Rate: 90 Ectopy: None Physical Exam Narrative General: Alert, oriented, no apparent distress HEENT: Atraumatic, normocephalic Eyes: Anicteric, normal conjunctiva, extraocular movements grossly intact Neck: Supple Respiratory: Clear to auscultation bilaterally, normal respiratory effort Cardiovascular: Regular rate and rhythm GI: Soft, nontender, nondistended Extremities: No edema Musculoskeletal: Moving all extremities Neuro: No overt focal neurological deficits Skin: No rashes appreciated Psych: Cooperative Assessment & Plan Assessment/Plan (1) Thoracic spinal stenosis: (2) Injury of back due to fall: PLAN: Plan Patient is a 52-year-old male who presented to [facility] ED on 03/28/2023 with low back pain after a fall. #Acute thoracic and lumbar back pain, thoracic spinal stenosis Secondary to mechanical fall on day of admission. L-spine MRI in ED showed prominent defect at T10-11 disc space level with moderate central canal stenosis, mild stenosis in the low lumbar area. Patient reports mid to low back pain with bilateral lower extremity paresthesias. Denies urinary or stool incontinence. ? Admit under inpatient status to [facility]. Orthopedic surgery consulted. Dr. Bar evaluated the patient in the ED, planning for T10 laminectomy tomorrow. N.p.o. at midnight. Preoperative evaluation as noted below. Pain control with scheduled Tylenol, as needed p.o. oxycodone and IV Dilaudid. Bowel regimen ordered. Orthopedics also ordered IV Decadron and gabapentin for pain relief. PT/OT/case management consulted. -04/25: Pain control, PT/OT, laminectomy today -04/26: Patient agrees he is not feeling very strong in his open working with physical therapy and does not think he is safe to go home today, continue pain control, will assess how patient is mobilizing today #Suspected KIMBERLY -Postop patient has O2 sats transiently dropped and this appears to correlate with him falling asleep and having intermittent apneic episodes and then sats improve, BiPAP nightly and now -He will need outpatient sleep study -04/26: CPAP nightly, highly suspect sleep apnea, cannot perform formal sleep study in hospital, will see if there is any way to qualify patient for CPAP while he is here #Elevated creatinine Creatinine 1.52, BUN 21 on admit. Baseline unknown. Patient reports good urine output recently. ? Follow-up a.m. BMP. UA, urine protein to creatinine ratio ordered. -04/25: Improved today, supportive care, encourage p.o. intake postop. Patient on fluids #Elevated BP BP 140s to 150s systolic in the ED. No previous diagnosis of hypertension per patient. Seems most likely secondary to pain, but unclear if patient could have a degree of underlying essential hypertension. ? Monitor BP. No need to initiate antihypertensives at this time. -04/25: Pain control, BP 129/83 this a.m. -04/26: BP 133/87, continue present management, may still be component of pain contributing but patient not profoundly hypertensive at this time Chronic medical conditions: ? Morbid obesity: BMI 44 on admit. Complicates care and patient's prognosis. ? Gout: Continue home allopurinol, probenecid. ? Rheumatoid arthritis: Continue home hydroxychloroquine. Okay to continue Humira post discharge. DVT prophylaxis: SCDs CODE STATUS: Full code, verified Expected disposition: TBD. Patient lives at home with his in [place], would like to go home on discharge if able but is open to the possibility of acute rehab if needed. Total clinical time spent by myself addressing the patient's medical issues, reviewing all the data, and collaborating with patient's care team: 35 minutes. Charges/Coding Visit Charges Inpatient E&M: 26227 Subs Hosp L2
[2023-04-26 09:40] LABS: Anion Gap 7 (5-15); BUN 20 mg/dL (7-18); BUN/Creat Ratio 13.7 RATIO (10-20); Calcium,Total 8.7 mg/dL (8.5-10.1); Chloride 108 mmol/L (98-107); Creatinine, Serum 1.46 mg/dL (0.70-1.30); EST Glomerular Filtration Rate 54 mL/min (>60); Est Glom Filt Rate - Afr Amer 65 mL/min (>60); Estimated Creatinine Clearance 61.11 ml/min; Glucose 128 mg/dL (74-106); Potassium 4.2 mmol/L (3.5-5.1); Sodium Level 139 mmol/L (136-145)
[2023-04-26] MEDS: Senna Tablet 1 TABLET PO ×2 (11:05→21:44)
[2023-04-26] MEDS: Polyethylene Glycol 3350 17 GM PACKET PO (11:05)
--- NOTE | 2023-04-26 16:12 | CASEMGMT ---
DUKE CONRAD NOTE: Per Dr Weiss, she anticipates pt may need oxygen @ HS. Order received for overnight trending pulse ox and to start testing on RA. Call placed to Kandace, resp therapist, and she was made aware of new order. DUKE CONRAD to room to discuss discharge planning. Pt resting in bed. Pt states he is still having a lot of pain and is not moving very well yet, stating he only got up to the chair today. He states he is not sure if he will be able to discharge home. Discussed possible options of HHC or SNF and made aware CM or SW to f/u with him on Friday. Discussed insurance coverage and [employer] and he states understands home O2 would not be billable under [employer] and he states is okay with it being billed under [facility] [employer]. CM to follow re: DME companies that are in-network w/pt's insurance, should he qualify for home O2. PLAN: TOMER BREWSTER RN, CM
[2023-04-26] MEDS: dexAMETHasone 4 MG/ML Vial IV ×2 (18:18→23:16)
[2023-04-26] MEDS: 0.9% Saline Lock 10 ML Syringe IV ×3 (18:19→23:16)
[2023-04-27] VITALS (12 sets, daily range): BP systolic 122–157; BP diastolic 73–92; PULSE 63–86; RESP 15–22; TEMP 36.4–36.6; O2SAT 54–96
[2023-04-27] MEDS: Acetaminophen 500 MG Tablet 1000 MG PO ×3 (02:57→17:21)
[2023-04-27] MEDS: dexAMETHasone 4 MG/ML Vial IV ×2 (06:24→12:11)
[2023-04-27] MEDS: 0.9% Saline Lock 10 ML Syringe IV ×3 (06:25→22:19)
[2023-04-27] MEDS: oxyCODONE 5 MG Tablet PO (06:35)
--- NOTE | 2023-04-27 07:30 | PN.HOSP_ITS ---
Reason for Visit Reason for Visit: Diagnoses Spinal stenosis, thoracic region (04/24/23) Unspecified injury of lower back, initial encounter (04/24/23) Unspecified fall, initial encounter (04/24/23) Subjective Subjective Patient still having some pain, had some urinary hesitancy but has been urinating. Eating and drinking well, did very poorly yesterday with physical therapy, understands that he may need placement, did get hypoxic overnight when sleeping and required O2 Objective Data Objective Data Vital Signs: Vital Signs Temp Pulse Resp BP Pulse Ox O2 Del Method O2 Flow Rate 97.5 F L 79 18 142/87 H 93 Room Air 8 04/27/23 06:27 04/27/23 06:27 04/27/23 06:27 04/27/23 06:27 04/27/23 06:27 04/27/23 06:27 04/27/23 03:10 FiO2 21 04/26/23 20:59 Oxygen Flow Rate (L/min) 8 Oxygen Delivery Method Room Air Weight: 140.264 kg Body Mass Index (BMI) 44.4 Intake & Output: Intake and Output for Last 24 Hours 04/25/23 04/26/23 04/27/23 23:59 23:59 23:59 Intake Total 2561.25 / 2561.25 840 / 840 Output Total 1700 / 1975 1850 / 2650 2550 / 2550 Balance 861.25 / 586.25 -1010 / -1810 -2550 / -2550 Lab / Micro Data 04/27/23 06:25 04/27/23 06:25 Labs: Laboratory Results - last 24 hr 04/26/23 08:00: WBC 11.0, RBC 4.46 L, Hgb 12.8 L, Hct 41.0, MCV 91.9, MCH 28.7, MCHC 31.2 L, RDW Std Deviation 43.4, RDW Coeff of Vasiliy 13.0, Plt Count 211, MPV 10.3, Immature Gran % (Auto) 0.400, Neut % (Auto) 80.5 H, Lymph % (Auto) 10.7 L, [place] % (Auto) 8.0, Eos % (Auto) 0.2, Baso % (Auto) 0.2, Absolute Neuts (auto) 8.8 H, Absolute Lymphs (auto) 1.17, Nucleated RBC % 0, Sodium 139, Potassium 4.2, Chloride 108 H, Carbon Dioxide 24.0, Anion Gap 7, BUN 20 H, Creatinine 1.46 H, Estim Creat Clear Calc 61.11, Est GFR (MDRD) Af Amer 65, Est GFR (MDRD) Non- Af 54 L, BUN/Creatinine Ratio 13.7, Glucose 128 H, Calcium 8.7 Rhythm Strip Rhythm Strip: Sinus Rhythm Rate: 90 Ectopy: None Physical Exam Narrative General: Alert, oriented, no apparent distress HEENT: Atraumatic, normocephalic Eyes: Anicteric, normal conjunctiva, extraocular movements grossly intact Neck: Thick neck Respiratory: Clear to auscultation bilaterally, normal respiratory effort Cardiovascular: Regular rate and rhythm GI: Soft, nontender, nondistended Extremities: No edema Musculoskeletal: Moving all extremities Neuro: No overt focal neurological deficits Skin: No rashes appreciated Psych: Cooperative Assessment & Plan Assessment/Plan (1) Thoracic spinal stenosis: (2) Injury of back due to fall: PLAN: Plan Patient is a 52-year-old male who presented to [facility] ED on 03/28/2023 with low back pain after a fall. #Acute thoracic and lumbar back pain, thoracic spinal stenosis Secondary to mechanical fall on day of admission. L-spine MRI in ED showed prominent defect at T10-11 disc space level with moderate central canal stenosis, mild stenosis in the low lumbar area. Patient reports mid to low back pain with bilateral lower extremity paresthesias. Denies urinary or stool incontinence. ? Admit under inpatient status to [facility]. Orthopedic surgery consulted. Dr. Bar evaluated the patient in the ED, planning for T10 laminectomy tomorrow. N.p.o. at midnight. Preoperative evaluation as noted below. Pain control with scheduled Tylenol, as needed p.o. oxycodone and IV Dilaudid. Bowel regimen ordered. Orthopedics also ordered IV Decadron and gabapentin for pain relief. PT/OT/case management consulted. -04/25: Pain control, PT/OT, laminectomy today -04/26: Patient agrees he is not feeling very strong in his open working with physical therapy and does not think he is safe to go home today, continue pain control, will assess how patient is mobilizing today -04/27: Had a lot of pain and was started on some IV Decadron yesterday by Dr. Bar. Patient only ambulated 3 feet, suspect he will not be able to go home and will likely need short-term rehab #Suspected KIMBERLY -Postop patient has O2 sats transiently dropped and this appears to correlate with him falling asleep and having intermittent apneic episodes and then sats improve, BiPAP nightly and now -He will need outpatient sleep study -04/26: CPAP nightly, highly suspect sleep apnea, cannot perform formal sleep study in hospital, will see if there is any way to qualify patient for CPAP while he is here -04/27: Overnight pulse ox to assess for at least home O2 we will need formal sleep study on outpatient basis-he did desaturate overnight, will need nightly O2 #Elevated creatinine Creatinine 1.52, BUN 21 on admit. Baseline unknown. Patient reports good urine output recently. ? Follow-up a.m. BMP. UA, urine protein to creatinine ratio ordered. -04/25: Improved today, supportive care, encourage p.o. intake postop. Patient on fluids -04/27: Had gone up however now that patient is taking p.o. has gone back down again #Elevated BP BP 140s to 150s systolic in the ED. No previous diagnosis of hypertension per patient. Seems most likely secondary to pain, but unclear if patient could have a degree of underlying essential hypertension. ? Monitor BP. No need to initiate antihypertensives at this time. -04/25: Pain control, BP 129/83 this a.m. -04/26: BP 133/87, continue present management, may still be component of pain contributing but patient not profoundly hypertensive at this time -04/27: BP 142/87, may be pain related however can consider small dose of blood pressure medication moving forward Chronic medical conditions: ? Morbid obesity: BMI 44 on admit. Complicates care and patient's prognosis. ? Gout: Continue home allopurinol, probenecid. ? Rheumatoid arthritis: Continue home hydroxychloroquine. Okay to continue Humira post discharge. DVT prophylaxis: SCDs CODE STATUS: Full code, verified Total clinical time spent by myself addressing the patient's medical issues, reviewing all the data, and collaborating with patient's care team: 35 minutes. Charges/Coding Visit Charges Inpatient E&M: 66178 Subs Hosp L2
[2023-04-27] MEDS: Senna Tablet 1 TABLET PO ×2 (07:50→22:07)
[2023-04-27] MEDS: Gabapentin 100 MG Capsule PO ×3 (07:50→17:21)
[2023-04-27] MEDS: Polyethylene Glycol 3350 17 GM PACKET PO (07:50)
[2023-04-27 08:11] LABS: Absolute Lymphocyte Count 0.79 X10^3/uL (0.83-4.51); Absolute Neutrophil Count 8.4 X10^3/uL (2.0-7.7); Basophil# 0.01 X10^3/uL; Basophil% 0.1 % (0-1); Hematocrit 42.9 % (40-54); Hemoglobin 13.4 g/dL (13.0-16.5); Lymphocyte # 0.79 X10^3/ul (0.83-4.51); Lymphocyte % 8.2 % (19-41); Mean Corp Hgb Conc 31.2 g/dL (32-36); Mean Corpuscular Hgb 28.5 pg (27.0-32.0); Mean Corpuscular Volume 91.3 fL (80-94); Mean Platelet Vol. 10.4 fl (6.2-12.0); Monocyte# 0.35 X10^3/uL; Monocyte% 3.6 % (0-10); NRBC Flagged by Analyzer 0 % (0-5); Neutrophil # 8.43 X10^3/uL (2.7-7.7); Neutrophil % 87.5 % (47-70); Platelet Count 231 K/mm3 (150-450); RBC Distribution Width CV 12.8 % (11.6-14.6); White Blood Count 9.6 K/mm3 (4.4-11.0)
[2023-04-27 08:36] LABS: Anion Gap 3 (5-15); BUN 22 mg/dL (7-18); Chloride 110 mmol/L (98-107); Creatinine, Serum 1.22 mg/dL (0.70-1.30); EST Glomerular Filtration Rate 66 mL/min (>60); Est Glom Filt Rate - Afr Amer 80 mL/min (>60); Estimated Creatinine Clearance 73.13 ml/min; Glucose 133 mg/dL (74-106); Potassium 4.4 mmol/L (3.5-5.1); Sodium Level 140 mmol/L (136-145)
[2023-04-28] VITALS (12 sets, daily range): BP systolic 128–153; BP diastolic 75–92; PULSE 64–81; RESP 16–18; TEMP 36.3–36.6; O2SAT 47–98
--- NOTE | 2023-04-28 01:44 | CPS ---
patient currently refusing cpap
[2023-04-28] MEDS: Acetaminophen 500 MG Tablet 1000 MG PO ×3 (02:45→18:11)
[2023-04-28 07:23] LABS: Absolute Lymphocyte Count 2.46 X10^3/uL (0.83-4.51); Absolute Neutrophil Count 8.4 X10^3/uL (2.0-7.7); Basophil# 0.05 X10^3/uL; Basophil% 0.4 % (0-1); Eosinophil# 0.05 X10^3/uL; Eosinophils% 0.4 % (0-5); Hematocrit 42.7 % (40-54); Hemoglobin 13.5 g/dL (13.0-16.5); Lymphocyte # 2.46 X10^3/ul (0.83-4.51); Lymphocyte % 20.7 % (19-41); Mean Corp Hgb Conc 31.6 g/dL (32-36); Mean Corpuscular Hgb 28.8 pg (27.0-32.0); Mean Platelet Vol. 9.7 fl (6.2-12.0); Monocyte# 0.89 X10^3/uL; Monocyte% 7.5 % (0-10); NRBC Flagged by Analyzer 0 % (0-5); Neutrophil # 8.36 X10^3/uL (2.7-7.7); Neutrophil % 70.3 % (47-70); Platelet Count 243 K/mm3 (150-450); RBC Distribution Width SD 42.8 fl (35.1-43.9); Red Blood Count 4.69 M/mm3 (4.6-6.2); White Blood Count 11.9 K/mm3 (4.4-11.0)
--- NOTE | 2023-04-28 07:33 | NURSING ---
Patient has been on continuous pulse ox overnight for the past four nights. Mr. Bowers desats into the 60s routinely and occasionally into the 50s. Patient has not wanted to wear the CPAP provided by the hospital. Nasal cannula was not effective, because the patient breaths through his mouth. As an alternative, patient was placed on a venti mask. His oxygen saturation remained satisfactory as long as he kept the venti mask on. When sleeping, he would often remove the venti mask in which case would desat once again into the 50s-60s.
--- NOTE | 2023-04-28 07:47 | PCM.PN.HOSP ---
Reason for Visit Reason for Visit: Diagnoses Spinal stenosis, thoracic region (04/24/23) Unspecified injury of lower back, initial encounter (04/24/23) Unspecified fall, initial encounter (04/24/23) Subjective Subjective Patient is a 52-year-old male who presented to [facility] ED on 03/28/2023 with low back pain after a fall. Objective Data Objective Data Vital Signs: Vital Signs Temp Pulse Resp BP Pulse Ox O2 Del Method O2 Flow Rate 97.9 F 68 16 139/86 H 96 Room Air 10 04/28/23 07:42 04/28/23 07:42 04/28/23 07:42 04/28/23 07:42 04/28/23 07:42 04/28/23 07:42 04/28/23 07:19 FiO2 35 04/28/23 07:19 Oxygen Flow Rate (L/min) 10 Oxygen Delivery Method Room Air Weight: 140.264 kg Body Mass Index (BMI) 44.4 Intake & Output: Intake and Output for Last 24 Hours 04/26/23 04/27/23 04/28/23 23:59 23:59 23:59 Intake Total 840 / 840 1420 / 1420 Output Total 1850 / 2650 4200 / 4200 Balance -1010 / -1810 -2780 / -2780 Lab / Micro Data 04/28/23 06:45 04/28/23 06:45 Labs: Laboratory Results - last 24 hr 04/27/23 06:25: WBC 9.6, RBC 4.70, Hgb 13.4, Hct 42.9, MCV 91.3, MCH 28.5, MCHC 31.2 L, RDW Std Deviation 43.0, RDW Coeff of Vasiliy 12.8, Plt Count 231, MPV 10.4, Immature Gran % (Auto) 0.600, Neut % (Auto) 87.5 H, Lymph % (Auto) 8.2 L, [place]isco[place] % (Auto) 3.6, Eos % (Auto) 0.0, Baso % (Auto) 0.1, Absolute Neuts (auto) 8.4 H, Absolute Lymphs (auto) 0.79 L, Nucleated RBC % 0, Sodium 140, Potassium 4.4, Chloride 110 H, Carbon Dioxide 27.0, Anion Gap 3 L, BUN 22 H, Creatinine 1.22, Estim Creat Clear Calc 73.13, Est GFR (MDRD) Af Amer 80, Est GFR (MDRD) Non-Af 66, BUN/Creatinine Ratio 18.0, Glucose 133 H, Calcium 9.0 04/28/23 06:45: WBC 11.9 H, RBC 4.69, Hgb 13.5, Hct 42.7, MCV 91.0, MCH 28.8, MCHC 31.6 L, RDW Std Deviation 42.8, RDW Coeff of Vasiliy 13.0, Plt Count 243, MPV 9.7, Immature Gran % (Auto) 0.700, Neut % (Auto) 70.3 H, Lymph % (Auto) 20.7, Briscoe % (Auto) 7.5, Eos % (Auto) 0.4, Baso % (Auto) 0.4, Absolute Neuts (auto) 8.4 H, Absolute Lymphs (auto) 2.46, Nucleated RBC % 0 Rhythm Strip Rhythm Strip: Sinus Rhythm Rate: 90 Ectopy: None Physical Exam Narrative GENERAL: cooperative HEENT: Atraumatic; normocephalic EYES; Anicteric, Normal Conjunctiva NECK; supple, normal thyroid, RESPIRATORY: Diminished to auscultation CARDIOVASCULAR: Regular S1 S2, GI: soft, normoactive bowel sounds, : No Renal angle tenderness; EXTREMITIES: No edema, no clubbing, MUSCULOSKELETAL: Left ankle in a boot NEURO: Awake; no lateralizing signs. SKIN: No Rash PSYCH; Flat affect Assessment & Plan Assessment/Plan (1) Thoracic spinal stenosis: (2) Injury of back due to fall: PLAN: Plan Patient is a 52-year-old male who presented to [facility] ED on 03/28/2023 with low back pain after a fall. 1. Acute thoracic and lumbar back pain, thoracic spinal stenosis Secondary to mechanical fall on day of admission. L-spine MRI in ED showed prominent defect at T10-11 disc space level with moderate central canal stenosis, mild stenosis in the low lumbar area. Consult was placed to Dr. Navarrete with spine surgery patient did receive IV Decadron. 2. Left ankle sprain ? Patient treated with PT OT as well as application of a boot 3. Suspected 3 sleep apnea ? Pap therapy at night patient may need to undergo sleep study as outpatient 4. Acute kidney injury ? Creatinine on admission was 1.52. Patient kidney function did improve to 1.22 with IV hydration 5. Newly diagnosed hypertension ? Patient started on scheduled antihypertensives 6. Class III obesity with BMI of 44.4 ? Complicating care weight loss advised 7. Gout ? Patient is on allopurinol did continue 8. Rheumatoid arthritis ? Patient is on hydroxychloroquine as well as Humira which was held on admission plan is to resume on discharge 9. Physical deconditioning - Requested for PT OT eval and family welfare social work professor to assist with discharge planning 10. DVT prophylaxis ? SC Lovenox Time spent in the patient's overall evaluation,decision-making process, review of diagnostic data, adjustment of management, discussion with other providers, nursing nursing and ancillary staff involved in patient's care documentation, 50 Minutes Charges/Coding Visit Charges Inpatient E&M: 12410 [facility] Hosp L3
--- NOTE | 2023-04-28 07:52 | PCM.PN.ORT ---
Subjective Subjective Patient seen and examined. Lying in bed resting comfortably. Pain minimal. He states the paresthesias in his legs have improved since surgery and his only complaint is persistent pain mostly in the left gluteal region. He is wearing his left ankle boot and has been up and ambulating with assistance. He states he walked about 20 feet. He denies any other complaints at this time Objective Data Objective Data Vital Signs: Vital Signs Temp Pulse Resp BP Pulse Ox O2 Del Method O2 Flow Rate 97.9 F 68 16 139/86 H 96 Room Air 10 04/28/23 07:42 04/28/23 07:42 04/28/23 07:42 04/28/23 07:42 04/28/23 07:42 04/28/23 07:42 04/28/23 07:19 FiO2 35 04/28/23 07:19 Oxygen Flow Rate (L/min) 10 Oxygen Delivery Method Room Air Weight: 309 lb 3.654 oz Body Mass Index (BMI) 44.4 Intake & Output: Intake and Output for Last 24 Hours 04/26/23 04/27/23 04/28/23 23:59 23:59 23:59 Intake Total 840 / 840 1420 / 1420 Output Total 1850 / 2650 4200 / 4200 Balance -1010 / -1810 -2780 / -2780 Lab / Micro Data 04/28/23 06:45 04/27/23 06:25 Labs: Laboratory Results - last 24 hr 04/27/23 06:25: WBC 9.6, RBC 4.70, Hgb 13.4, Hct 42.9, MCV 91.3, MCH 28.5, MCHC 31.2 L, RDW Std Deviation 43.0, RDW Coeff of Vasiliy 12.8, Plt Count 231, MPV 10.4, Immature Gran % (Auto) 0.600, Neut % (Auto) 87.5 H, Lymph % (Auto) 8.2 L, Dickenson % (Auto) 3.6, Eos % (Auto) 0.0, Baso % (Auto) 0.1, Absolute Neuts (auto) 8.4 H, Absolute Lymphs (auto) 0.79 L, Nucleated RBC % 0, Sodium 140, Potassium 4.4, Chloride 110 H, Carbon Dioxide 27.0, Anion Gap 3 L, BUN 22 H, Creatinine 1.22, Estim Creat Clear Calc 73.13, Est GFR (MDRD) Af Amer 80, Est GFR (MDRD) Non-Af 66, BUN/Creatinine Ratio 18.0, Glucose 133 H, Calcium 9.0 04/28/23 06:45: WBC 11.9 H, RBC 4.69, Hgb 13.5, Hct 42.7, MCV 91.0, MCH 28.8, MCHC 31.6 L, RDW Std Deviation 42.8, RDW Coeff of Vasiliy 13.0, Plt Count 243, MPV 9.7, Immature Gran % (Auto) 0.700, Neut % (Auto) 70.3 H, Lymph % (Auto) 20.7, Dickenson % (Auto) 7.5, Eos % (Auto) 0.4, Baso % (Auto) 0.4, Absolute Neuts (auto) 8.4 H, Absolute Lymphs (auto) 2.46, Nucleated RBC % 0 Rhythm Strip Rhythm Strip: Sinus Rhythm Rate: 90 Ectopy: None Physical Exam Const alert, oriented x3 and no apparent distress General Appearance: cooperative, comfortable and well kempt Resp normal respiratory effort and normal air movement Effort and Inspection: able to speak in complete sentences Cardio peripheral pulses 2+ throughout GI soft to palpation, non-tender and non-distended Back/Spine Back/Spine Narrative: Dressing clean dry and intact Cervical Spine: cervical ROM normal Thoracic Spine / Upper Back: normal to inspection Lumbar Spine / Lower Back: normal to inspection Extremity normal to inspection, full ROM, normal capillary refill, no clubbing, cyanosis or edema and no calf tenderness Skin no rashes or lesions noted General Skin Exam: no breakdown Neuro oriented x3, CN's II-XII intact bilaterally, moves all extremities, no focal motor deficits, no sensory deficits noted and deep tendon reflexes 2+ bilaterally Motor Exam: strength 5/5 throughout and muscle tone normal throughout Assessment & Plan Assessment/Plan (1) Thoracic spinal stenosis: PLAN: I had a lengthy discussion with the patient. He seems to be improving since surgery. His pain is controlled and he continues to improve with mobilization. From orthospine standpoint I recommend daily dressing changes to his back with iodine gauze and tape. Use waterproof dressing to shower. Activity as tolerated with weightbearing as tolerated in left ankle boot. He is on gabapentin which he feels is helping. I recommend he continue this medication upon discharge as well. Depending on assessment patient may need inpatient rehab on discharge. Okay to discharge from orthospine standpoint (2) Sprain of ankle, left:
[2023-04-28] MEDS: Gabapentin 100 MG Capsule PO ×3 (07:57→16:37)
[2023-04-28 08:06] LABS: Anion Gap 5 (5-15); BUN 22 mg/dL (7-18); BUN/Creat Ratio 17.9 RATIO (10-20); Calcium,Total 9.2 mg/dL (8.5-10.1); Chloride 110 mmol/L (98-107); Creatinine, Serum 1.23 mg/dL (0.70-1.30); EST Glomerular Filtration Rate 66 mL/min (>60); Est Glom Filt Rate - Afr Amer 79 mL/min (>60); Estimated Creatinine Clearance 72.54 ml/min; Glucose 108 mg/dL (74-106); Potassium 4.1 mmol/L (3.5-5.1); Sodium Level 143 mmol/L (136-145)
--- NOTE | 2023-04-28 09:32 | CASEMGMT ---
Social Work SW met w/pt in regard to discharge plan. Pt states can manage at home, but does need some DME including raised toilet seat, shower bench, and oxygen of some sort for at night. SW explained the oxygen would go through his regular insurance not Worker's Comp. Pt states understanding. SW asked pt about HHC vs outpt PT, pt is not certain. SW let CM know pt's plan, she will follow up. EULALIA Mary
[2023-04-28] MEDS: Senna Tablet 1 TABLET PO ×2 (09:49→21:17)
[2023-04-28] MEDS: Polyethylene Glycol 3350 17 GM PACKET PO (09:49)
[2023-04-28] MEDS: Enoxaparin 40 MG/0.4 ML Syringe SC (10:28)
[2023-04-28] MEDS: amLODIPine 10 MG Tablet PO (10:28)
--- NOTE | 2023-04-28 11:17 | CASEMGMT ---
Addendum entered by Vianca Christianson 04/28/23 16:00: Spoke with respiratory Yajaira who states pt needs a venti mask and was on 35% on 8L. States pt is a mouth breather and pt can not go home with venti mask. DUKE CONRAD into pt room as pt is beginning therapy, will check back. DUKE CONRAD back into room after session and pt states he feels he cannot return home now. Pt states he is not aware of any facilities in [place] but has heard on [place] in [place]. Will update SW. Original Note: DUKE CONRAD into pt room, pt states he plans to go home at mo and would like [facility]. Pt also states he needs a crotch piece baster, raised toilet seat and shower bench. Pt aware that any oxygen needs will go through his private insurance. Pt denies preference on DME company. TC to Jenn, workers comp watch caser, unable to leave a message. Email to her with the information on pt needs.
--- NOTE | 2023-04-28 17:45 | CASEMGMT ---
Social Work Received notice from Therapy today that patient is not doing well and PT/OT would recommend SNF. Received handoff from RN ANAMARIA Coley that met with patient and patient is now willing to consider SNF after working with therapy today. Met with patient and provided list of SNF choices generated from [facility], which included Medicare star ratings and quality data to patient's geographical region. Reviewed list with patient. Patient agrees to short term SNF, as reports desire to get back to work. Reports just started this job in March 2023. Choices for SNF in order: [facility], [facility], and [facility]. Message left for Discharge Extruder Tender Mariela of choices. Plan: SNF, short term. Will need to work through C9 process due to this being a Workers' Comp situation. -JESUSITA Morales
[2023-04-28] MEDS: 0.9% Saline Lock 10 ML Syringe IV (21:18)
[2023-04-29] VITALS (13 sets, daily range): BP systolic 133–154; BP diastolic 57–86; PULSE 48–83; RESP 16–20; TEMP 36.3–36.7; O2SAT 48–100
[2023-04-29] MEDS: Acetaminophen 500 MG Tablet 1000 MG PO ×3 (02:18→17:37)
--- NOTE | 2023-04-29 04:48 | NURSING ---
Discussion with patient for about the fifth time tonight regarding the importance of oxygenation. Patient does not want to wear the CPAP. He keeps removing the venti mask in his sleep. Patient most recently dropped to 48% SpO2.
[2023-04-29] MEDS: Gabapentin 100 MG Capsule PO ×3 (07:35→17:35)
--- NOTE | 2023-04-29 07:40 | PCM.PN.HOSP ---
Reason for Visit Reason for Visit: Diagnoses Spinal stenosis, thoracic region (04/24/23) Unspecified injury of lower back, initial encounter (04/24/23) Sprain of unspecified ligament of left ankle, initial encounter (04/24/23) Unspecified fall, initial encounter (04/24/23) Subjective Subjective Patient seen tolerating PT well so far plan is for patient to be discharged to half-way facility Objective Data Objective Data Vital Signs: Vital Signs Temp Pulse Resp BP Pulse Ox O2 Del Method O2 Flow Rate 97.8 F 67 16 133/78 H 97 Room Air 8 04/29/23 07:23 04/29/23 07:23 04/29/23 07:23 04/29/23 07:23 04/29/23 07:23 04/29/23 07:23 04/29/23 04:50 FiO2 35 04/28/23 07:19 Oxygen Flow Rate (L/min) 8 Oxygen Delivery Method Room Air Weight: 140.264 kg Body Mass Index (BMI) 44.4 Intake & Output: Intake and Output for Last 24 Hours 04/27/23 04/28/23 04/29/23 23:59 23:59 23:59 Intake Total 1420 / 1420 Output Total 4200 / 4200 900 / 1600 1300 / 1300 Balance -2780 / -2780 -900 / -1600 -1300 / -1300 Lab / Micro Data 04/29/23 07:39 04/29/23 07:39 Labs: Laboratory Results - last 24 hr 04/28/23 06:45: Sodium 143, Potassium 4.1, Chloride 110 H, Carbon Dioxide 28.0, Anion Gap 5, BUN 22 H, Creatinine 1.23, Estim Creat Clear Calc 72.54, Est GFR (MDRD) Af Amer 79, Est GFR (MDRD) Non-Af 66, BUN/Creatinine Ratio 17.9, Glucose 108 H, Calcium 9.2 Rhythm Strip Rhythm Strip: Sinus Rhythm Rate: 90 Ectopy: None Physical Exam Narrative GENERAL: cooperative HEENT: Atraumatic; normocephalic EYES; Anicteric, Normal Conjunctiva NECK; supple, normal thyroid, RESPIRATORY: Diminished to auscultation CARDIOVASCULAR: Regular S1 S2, GI: soft, normoactive bowel sounds, : No Renal angle tenderness; EXTREMITIES: No edema, no clubbing, MUSCULOSKELETAL: Left ankle in a boot NEURO: Awake; no lateralizing signs. SKIN: No Rash PSYCH; Flat affect Assessment & Plan Assessment/Plan (1) Thoracic spinal stenosis: (2) Injury of back due to fall: PLAN: Plan Patient is a 52-year-old male who presented to [facility] ED on 03/28/2023 with low back pain after a fall. 1. Acute thoracic and lumbar back pain, thoracic spinal stenosis Secondary to mechanical fall on day of admission. L-spine MRI in ED showed prominent defect at T10-11 disc space level with moderate central canal stenosis, mild stenosis in the low lumbar area. Consult was placed to Dr. Navarrete with spine surgery patient did receive IV Decadron. ? 04/29/2023 still complains of some back pain. Transferred to half-way facility pending 2. Left ankle sprain ? Patient treated with PT OT as well as application of a boot 3. Suspected 3 sleep apnea ? Pap therapy at night patient may need to undergo sleep study as outpatient 4. Acute kidney injury ? Creatinine on admission was 1.52. Patient kidney function did improve to 1.22 with IV hydration 5. Newly diagnosed hypertension ? Patient started on scheduled antihypertensives 6. Class III obesity with BMI of 44.4 ? Complicating care weight loss advised 7. Gout ? Patient is on allopurinol did continue 8. Rheumatoid arthritis ? Patient is on hydroxychloroquine as well as Humira which was held on admission plan is to resume on discharge 9. Physical deconditioning - Requested for PT OT eval and aids social worker to assist with discharge planning 10. DVT prophylaxis ? SC Lovenox Time spent in the patient's overall evaluation,decision-making process, review of diagnostic data, adjustment of management, discussion with other providers, nursing nursing and ancillary staff involved in patient's care documentation,35 Minutes Charges/Coding Visit Charges Inpatient E&M: 07891 Subs Hosp L2
[2023-04-29 08:14] LABS: Absolute Lymphocyte Count 3.54 X10^3/uL (0.83-4.51); Absolute Neutrophil Count 3.2 X10^3/uL (2.0-7.7); Basophil# 0.11 X10^3/uL; Basophil% 1.4 % (0-1); Eosinophil# 0.23 X10^3/uL; Hematocrit 45.5 % (40-54); Hemoglobin 14.3 g/dL (13.0-16.5); Lymphocyte # 3.54 X10^3/ul (0.83-4.51); Mean Corp Hgb Conc 31.4 g/dL (32-36); Mean Corpuscular Hgb 28.7 pg (27.0-32.0); Mean Corpuscular Volume 91.2 fL (80-94); Mean Platelet Vol. 9.8 fl (6.2-12.0); Monocyte# 0.52 X10^3/uL; Monocyte% 6.8 % (0-10); NRBC Flagged by Analyzer 0 % (0-5); Neutrophil # 3.22 X10^3/uL (2.7-7.7); Neutrophil % 41.8 % (47-70); Platelet Count 261 K/mm3 (150-450); RBC Distribution Width CV 13.1 % (11.6-14.6); RBC Distribution Width SD 43.9 fl (35.1-43.9); Red Blood Count 4.99 M/mm3 (4.6-6.2); White Blood Count 7.7 K/mm3 (4.4-11.0)
[2023-04-29 08:36] LABS: Anion Gap 2 (5-15); BUN 23 mg/dL (7-18); BUN/Creat Ratio 18.9 RATIO (10-20); Chloride 108 mmol/L (98-107); Creatinine, Serum 1.22 mg/dL (0.70-1.30); EST Glomerular Filtration Rate 66 mL/min (>60); Est Glom Filt Rate - Afr Amer 80 mL/min (>60); Estimated Creatinine Clearance 73.13 ml/min; Glucose 99 mg/dL (74-106); Potassium 3.7 mmol/L (3.5-5.1); Sodium Level 141 mmol/L (136-145)
--- NOTE | 2023-04-29 08:55 | CASEMGMT ---
Discharge Planning Referral sent to Lisa [facility], [facility], and [facility]. Mariela Khan, Discharge Planning Asst.
[2023-04-29] MEDS: Polyethylene Glycol 3350 17 GM PACKET PO (10:17)
[2023-04-29] MEDS: Senna Tablet 1 TABLET PO (10:17)
[2023-04-29] MEDS: amLODIPine 10 MG Tablet PO (10:17)
[2023-04-29] MEDS: Enoxaparin 40 MG/0.4 ML Syringe SC (10:17)
--- NOTE | 2023-04-29 14:30 | CASEMGMT ---
Social Work Received update from discharge financial planning analyst that [facility] in [facility] is interested in this patient but did have some questions. Returned phone call to hospice volunteer coordinator Yashira ([phone]) with this check writer's name and number to call back to discuss. Based on this check writer's conversation with the patient, this facility would be the patient's facility of choice. -EULALIA Morales, QUIRK SANDER
--- NOTE | 2023-04-29 14:38 | CASEMGMT ---
Spoke with Audelia at [facility], she will review pt chart to confirm qualification for NIV.
[2023-04-30] VITALS (8 sets, daily range): BP systolic 119–145; BP diastolic 71–95; PULSE 72–82; RESP 16–18; TEMP 36.3–36.6; O2SAT 92–100
--- NOTE | 2023-04-30 01:20 | CPS ---
pt refused. Wearing venti mask
[2023-04-30] MEDS: Acetaminophen 500 MG Tablet 1000 MG PO ×3 (03:37→17:51)
[2023-04-30] MEDS: amLODIPine 10 MG Tablet PO (07:45)
[2023-04-30] MEDS: Senna Tablet 1 TABLET PO (07:45)
[2023-04-30] MEDS: Enoxaparin 40 MG/0.4 ML Syringe SC (07:46)
[2023-04-30] MEDS: Polyethylene Glycol 3350 17 GM PACKET PO (07:46)
[2023-04-30] MEDS: Gabapentin 100 MG Capsule PO ×3 (07:48→17:01)
--- NOTE | 2023-04-30 07:58 | PCM.PN.HOSP ---
Reason for Visit Reason for Visit: Diagnoses Spinal stenosis, thoracic region (04/24/23) Unspecified injury of lower back, initial encounter (04/24/23) Sprain of unspecified ligament of left ankle, initial encounter (04/24/23) Unspecified fall, initial encounter (04/24/23) Subjective Subjective Patient seen has tolerated physical therapy well so far still complains of some back pain. Awaiting insurance pre-CERT prior to being transferred to a snf facility Objective Data Objective Data Vital Signs: Vital Signs Temp Pulse Resp BP Pulse Ox O2 Del Method O2 Flow Rate 97.7 F L 72 18 140/85 H 94 Room Air 8 04/30/23 03:39 04/30/23 03:39 04/30/23 03:39 04/30/23 03:39 04/30/23 03:39 04/30/23 03:40 04/30/23 01:01 FiO2 35 04/28/23 07:19 Oxygen Flow Rate (L/min) 8 Oxygen Delivery Method Room Air Weight: 140.264 kg Body Mass Index (BMI) 44.4 Intake & Output: Intake and Output for Last 24 Hours 04/28/23 04/29/23 04/30/23 23:59 23:59 23:59 Output Total 900 / 1600 2600 / 2600 600 / 600 Balance -900 / -1600 -2600 / -2600 -600 / -600 Lab / Micro Data 04/30/23 07:55 04/30/23 07:55 Labs: Laboratory Results - last 24 hr 04/29/23 07:39: WBC 7.7, RBC 4.99, Hgb 14.3, Hct 45.5, MCV 91.2, MCH 28.7, MCHC 31.4 L, RDW Std Deviation 43.9, RDW Coeff of Vasiliy 13.1, Plt Count 261, MPV 9.8, Immature Gran % (Auto) 1.000 H, Neut % (Auto) 41.8 L, Lymph % (Auto) 46.0 H, [place] % (Auto) 6.8, Eos % (Auto) 3.0, Baso % (Auto) 1.4 H, Absolute Neuts (auto) 3.2, Absolute Lymphs (auto) 3.54, Nucleated RBC % 0, Sodium 141, Potassium 3.7, Chloride 108 H, Carbon Dioxide 31.0, Anion Gap 2 L, BUN 23 H, Creatinine 1.22, Estim Creat Clear Calc 73.13, Est GFR (MDRD) Af Amer 80, Est GFR (MDRD) Non-Af 66, BUN/Creatinine Ratio 18.9, Glucose 99, Calcium 9.0 Rhythm Strip Rhythm Strip: Sinus Rhythm Rate: 90 Ectopy: None Physical Exam Narrative GENERAL: cooperative HEENT: Atraumatic; normocephalic EYES; Anicteric, Normal Conjunctiva NECK; supple, normal thyroid, RESPIRATORY: Diminished to auscultation CARDIOVASCULAR: Regular S1 S2, GI: soft, normoactive bowel sounds, : No Renal angle tenderness; EXTREMITIES: No edema, no clubbing, MUSCULOSKELETAL: Left ankle in a boot NEURO: Awake; no lateralizing signs. SKIN: No Rash PSYCH; Flat affect Assessment & Plan Assessment/Plan (1) Thoracic spinal stenosis: (2) Injury of back due to fall: PLAN: Plan Patient is a 52-year-old male who presented to [facility] ED on 03/28/2023 with low back pain after a fall. 1. Acute thoracic and lumbar back pain, thoracic spinal stenosis Secondary to mechanical fall on day of admission. L-spine MRI in ED showed prominent defect at T10-11 disc space level with moderate central canal stenosis, mild stenosis in the low lumbar area. Consult was placed to Dr. Navarrete with spine surgery patient did receive IV Decadron. ? 04/29/2023 still complains of some back pain. Transferred to snf facility pending ?04/30/2023;Patient seen has tolerated physical therapy well so far still complains of some back pain. Awaiting insurance pre-CERT prior to being transferred to a snf facility 2. Left ankle sprain ? Patient treated with PT OT as well as application of a boot 3. Suspected 3 sleep apnea ? Pap therapy at night patient may need to undergo sleep study as outpatient 4. Acute kidney injury ? Creatinine on admission was 1.52. Patient kidney function did improve to 1.22 with IV hydration 5. Newly diagnosed hypertension ? Patient started on scheduled antihypertensives 6. Class III obesity with BMI of 44.4 ? Complicating care weight loss advised 7. Gout ? Patient is on allopurinol did continue 8. Rheumatoid arthritis ? Patient is on hydroxychloroquine as well as Humira which was held on admission plan is to resume on discharge 9. Physical deconditioning - Requested for PT OT eval and psychiatric social worker to assist with discharge planning 10. DVT prophylaxis ? SC Lovenox Time spent in the patient's overall evaluation,decision-making process, review of diagnostic data, adjustment of management, discussion with other providers, nursing nursing and ancillary staff involved in patient's care documentation,35 Minutes Charges/Coding Visit Charges Inpatient E&M: 13634 Subs Hosp L2
--- NOTE | 2023-04-30 08:23 | CM.ED ---
Social Work Spoke with Yashira and admissions at [facility] ([phone]). Yashira confirms there is a bed available at their facility for this patient though [facility] does need a C9 and the name and number of the Worker's Comp. behavioral health case manager in order to negotiate a rate. Once the C9 and the right negotiation is firmed up, would be able to officially accept the patient. Yashira reports there are several COVID patients at the facility want to make sure patient is aware of this and okay. Social work agreed to follow-up with needed information and with the patient. Worker's Comp. behavioral health case manager-Jenn Zaragoza ([phone]) Worker's Comp. claim number: [id number] Date of injury: 04/24/2023 Plan: Pending [facility]; working through Worker's Comp. approval. -EULALIA Morales, BUSINESS OFFICE SPECIALIST *This note was generated with [employer] software. It may contain incorrect words, spelling, and punctuation that were not noted in review of the chart prior to signing*
[2023-04-30 08:41] LABS: Absolute Lymphocyte Count 2.66 X10^3/uL (0.83-4.51); Absolute Neutrophil Count 3.9 X10^3/uL (2.0-7.7); Basophil# 0.09 X10^3/uL; Basophil% 1.2 % (0-1); Eosinophil# 0.21 X10^3/uL; Eosinophils% 2.8 % (0-5); Hematocrit 47.8 % (40-54); Hemoglobin 15.1 g/dL (13.0-16.5); Lymphocyte # 2.66 X10^3/ul (0.83-4.51); Lymphocyte % 35.7 % (19-41); Mean Corp Hgb Conc 31.6 g/dL (32-36); Mean Corpuscular Hgb 28.4 pg (27.0-32.0); Mean Platelet Vol. 9.5 fl (6.2-12.0); Monocyte# 0.56 X10^3/uL; Monocyte% 7.5 % (0-10); NRBC Flagged by Analyzer 0 % (0-5); Neutrophil # 3.86 X10^3/uL (2.7-7.7); Neutrophil % 51.7 % (47-70); Platelet Count 284 K/mm3 (150-450); RBC Distribution Width CV 13.1 % (11.6-14.6); RBC Distribution Width SD 42.9 fl (35.1-43.9); Red Blood Count 5.31 M/mm3 (4.6-6.2); White Blood Count 7.5 K/mm3 (4.4-11.0)
[2023-04-30 09:16] LABS: Anion Gap 6 (5-15); BUN 24 mg/dL (7-18); Calcium,Total 9.3 mg/dL (8.5-10.1); Chloride 109 mmol/L (98-107); Creatinine, Serum 1.26 mg/dL (0.70-1.30); EST Glomerular Filtration Rate 64 mL/min (>60); Est Glom Filt Rate - Afr Amer 77 mL/min (>60); Estimated Creatinine Clearance 70.81 ml/min; Glucose 105 mg/dL (74-106); Potassium 3.9 mmol/L (3.5-5.1); Sodium Level 141 mmol/L (136-145)
--- NOTE | 2023-04-30 11:52 | CASEMGMT ---
Addendum entered by Katelin Dash 04/30/23 12:57: C9 sent to brittanie Barajas CM via secure email. Will await return call or email from Brittanie Wallace. THOR Patel Addendum entered by Katelin Dash 04/30/23 12:08: Phone call to Yashira at [facility]. Yashira given claim number and information for Worker's Comp CM. Yashira states that due to covid, they any not have a bed available. Yashira to Update SW later today after testing and bed availability known. [facility] requesting additional information. Updates given for consideration of acceptance. THOR Patel Original Note: Social Work SW met with pt and updated that [facility] is able to accept pt but they do have pt's with Covid. Pt is agreeable to go to [facility] and continues to feel he will need short term SNF placement. Phone call to [facility] Zaragoza with no answer. Email sent to confirm next steps for placement and C9 approval. SW will await return communication. THOR Patel
--- NOTE | 2023-04-30 12:04 | CASEMGMT ---
Received notification from Audelia at [facility] that pt currently does not have a qualifying dx for NIV.
--- NOTE | 2023-04-30 15:16 | CASEMGMT ---
Spoke with Anel at [facility] the CM for Workers Comp in their office, she was given all contact info for Jenn Zaragoza the Workers Comp CM through [employer]. She is aware that there are two facilities that are pending for pt and SW has reached out to Jenn today with C-9 via email with no response. Anel's contact number is [phone].
--- NOTE | 2023-04-30 15:52 | CASEMGMT ---
Social Work No response from email sent to Jenn Nik with Workers Comp. SW attempted to place phone call and voice mail left requesting attention to this situation. THOR Patel
--- NOTE | 2023-04-30 21:55 | CPS ---
Patient refused PAP therapy for the night. Wearing 35% venti mask at night.
[2023-05-01] MEDS: Acetaminophen 500 MG Tablet 1000 MG PO ×3 (02:18→20:00)
[2023-05-01 02:22] VITALS: BP 118/73; PULSE 70; RESP 16; TEMP 36.8; O2SAT 94
[2023-05-01] MEDS: Gabapentin 100 MG Capsule PO ×3 (06:56→22:13)
[2023-05-01 08:04] LABS: Absolute Lymphocyte Count 1.72 X10^3/uL (0.83-4.51); Absolute Neutrophil Count 3.7 X10^3/uL (2.0-7.7); Basophil# 0.06 X10^3/uL; Basophil% 0.9 % (0-1); Eosinophil# 0.25 X10^3/uL; Eosinophils% 3.9 % (0-5); Hematocrit 46.4 % (40-54); Hemoglobin 14.5 g/dL (13.0-16.5); Lymphocyte # 1.72 X10^3/ul (0.83-4.51); Lymphocyte % 27.1 % (19-41); Mean Corp Hgb Conc 31.3 g/dL (32-36); Mean Corpuscular Hgb 28.2 pg (27.0-32.0); Mean Corpuscular Volume 90.3 fL (80-94); Mean Platelet Vol. 9.4 fl (6.2-12.0); Monocyte# 0.55 X10^3/uL; Monocyte% 8.7 % (0-10); NRBC Flagged by Analyzer 0 % (0-5); Neutrophil # 3.72 X10^3/uL (2.7-7.7); Neutrophil % 58.6 % (47-70); Platelet Count 258 K/mm3 (150-450); RBC Distribution Width CV 12.8 % (11.6-14.6); RBC Distribution Width SD 42.4 fl (35.1-43.9); Red Blood Count 5.14 M/mm3 (4.6-6.2); White Blood Count 6.4 K/mm3 (4.4-11.0)
[2023-05-01 08:20] LABS: Anion Gap 5 (5-15); BUN 21 mg/dL (7-18); BUN/Creat Ratio 16.2 RATIO (10-20); Calcium,Total 9.1 mg/dL (8.5-10.1); Chloride 109 mmol/L (98-107); EST Glomerular Filtration Rate 62 mL/min (>60); Est Glom Filt Rate - Afr Amer 74 mL/min (>60); Estimated Creatinine Clearance 68.63 ml/min; Glucose 110 mg/dL (74-106); Potassium 4.1 mmol/L (3.5-5.1); Sodium Level 140 mmol/L (136-145)
[2023-05-01 08:51] VITALS: BP 140/98; PULSE 75; RESP 18; TEMP 36.5; O2SAT 95
[2023-05-01] MEDS: Enoxaparin 40 MG/0.4 ML Syringe SC (08:58)
[2023-05-01] MEDS: amLODIPine 10 MG Tablet PO (08:59)
[2023-05-01] MEDS: Polyethylene Glycol 3350 17 GM PACKET PO (08:59)
--- NOTE | 2023-05-01 09:22 | CASEMGMT ---
Social Work Return email received from Jenn Zaragoza at [employer]. Jenn is stating she is not the compensation adjuster for pt's case but Raine Ramírez is. RACHELE sent an email and the C9 request for SNF to Raine Ramírez. Phone call to Yashira at [facility]. Yashira verifies they have a bed available and can accept pt if an agreeable rick can be negotiated with [employer]. RACHELE provided Yashira with the correct name and email address of the compensation adjuster assigned to pt's case. RACHELE will wait for return correspondence from [employer] for approval of C9 request for SNF. THOR Patel
--- NOTE | 2023-05-01 10:37 | PCM.PN.HOSP ---
Reason for Visit Reason for Visit: Diagnoses Spinal stenosis, thoracic region (04/24/23) Unspecified injury of lower back, initial encounter (04/24/23) Sprain of unspecified ligament of left ankle, initial encounter (04/24/23) Unspecified fall, initial encounter (04/24/23) Subjective Subjective Patient seen no change in clinical condition awaiting approval prior to transfer to [facility] Objective Data Objective Data Vital Signs: Vital Signs Temp Pulse Resp BP Pulse Ox O2 Del Method O2 Flow Rate 97.7 F L 75 18 140/98 H 95 Room Air 8 05/01/23 08:51 05/01/23 08:51 05/01/23 08:51 05/01/23 08:51 05/01/23 08:51 05/01/23 08:51 04/30/23 22:00 FiO2 98 04/30/23 22:00 Oxygen Flow Rate (L/min) 8 Oxygen Delivery Method Room Air Weight: 140.264 kg Body Mass Index (BMI) 44.4 Intake & Output: Intake and Output for Last 24 Hours 04/29/23 04/30/23 05/01/23 23:59 23:59 23:59 Intake Total 1600 / 1900 600 / 600 Output Total 2600 / 2600 1300 / 1900 825 / 825 Balance -2600 / -2600 300 / 0 -225 / -225 Lab / Micro Data 05/01/23 07:27 05/01/23 07:27 Labs: Laboratory Results - last 24 hr 05/01/23 07:27: WBC 6.4, RBC 5.14, Hgb 14.5, Hct 46.4, MCV 90.3, MCH 28.2, MCHC 31.3 L, RDW Std Deviation 42.4, RDW Coeff of Vasiliy 12.8, Plt Count 258, MPV 9.4, Immature Gran % (Auto) 0.800, Neut % (Auto) 58.6, Lymph % (Auto) 27.1, [place] % (Auto) 8.7, Eos % (Auto) 3.9, Baso % (Auto) 0.9, Absolute Neuts (auto) 3.7, Absolute Lymphs (auto) 1.72, Nucleated RBC % 0, Sodium 140, Potassium 4.1, Chloride 109 H, Carbon Dioxide 26.0, Anion Gap 5, BUN 21 H, Creatinine 1.30, Estim Creat Clear Calc 68.63, Est GFR (MDRD) Af Amer 74, Est GFR (MDRD) Non-Af 62, BUN/Creatinine Ratio 16.2, Glucose 110 H, Calcium 9.1 Rhythm Strip Rhythm Strip: Sinus Rhythm Rate: 90 Ectopy: None Physical Exam Narrative GENERAL: cooperative HEENT: Atraumatic; normocephalic EYES; Anicteric, Normal Conjunctiva NECK; supple, normal thyroid, RESPIRATORY: Diminished to auscultation CARDIOVASCULAR: Regular S1 S2, GI: soft, normoactive bowel sounds, : No Renal angle tenderness; EXTREMITIES: No edema, no clubbing, MUSCULOSKELETAL: Left ankle in a boot NEURO: Awake; no lateralizing signs. SKIN: No Rash PSYCH; Flat affect Assessment & Plan Assessment/Plan (1) Thoracic spinal stenosis: (2) Injury of back due to fall: PLAN: Plan Patient is a 52-year-old male who presented to [facility] ED on 03/28/2023 with low back pain after a fall. 1. Acute thoracic and lumbar back pain, thoracic spinal stenosis Secondary to mechanical fall on day of admission. L-spine MRI in ED showed prominent defect at T10-11 disc space level with moderate central canal stenosis, mild stenosis in the low lumbar area. Consult was placed to Dr. Navarrete with spine surgery patient did receive IV Decadron. ? 04/29/2023 still complains of some back pain. [facility] ?04/30/2023;Patient seen has tolerated physical therapy well so far still complains of some back pain. Awaiting insurance pre-CERT prior to being transferred to a prison facility ? 05/01/2023 patient still has back pain we will continue PT OT as tolerated 2. Left ankle sprain ? Patient treated with PT OT as well as application of a boot 3. Suspected 3 sleep apnea ? Pap therapy at night patient may need to undergo sleep study as outpatient 4. Acute kidney injury ? Creatinine on admission was 1.52. Patient kidney function did improve to 1.22 with IV hydration 5. Newly diagnosed hypertension ? Patient started on scheduled antihypertensives 6. Class III obesity with BMI of 44.4 ? Complicating care weight loss advised 7. Gout ? Patient is on allopurinol did continue 8. Rheumatoid arthritis ? Patient is on hydroxychloroquine as well as Humira which was held on admission plan is to resume on discharge 9. Physical deconditioning - Requested for PT OT eval and high school social studies tutor to assist with discharge planning 10. DVT prophylaxis ? SC Lovenox Time spent in the patient's overall evaluation,decision-making process, review of diagnostic data, adjustment of management, discussion with other providers, nursing nursing and ancillary staff involved in patient's care documentation,35 Minutes Charges/Coding Visit Charges Inpatient E&M: 03626 Subs Hosp L2
[2023-05-01 13:53] VITALS: BP 114/62; PULSE 62; RESP 18; TEMP 36.6; O2SAT 94
--- NOTE | 2023-05-01 15:42 | CASEMGMT ---
Social Work SW received an email that SNF was denied as workers comp did not have enough clinical information. Clinicals emailed to Raine Ramírez. Will await Workers comp review of information and determination of SNF placement. THOR Patel
[2023-05-01 21:50] VITALS: BP 147/85; PULSE 84; RESP 16; TEMP 36.9; O2SAT 95
[2023-05-02 02:50] VITALS: BP 123/82; PULSE 72; RESP 16; TEMP 36.3; O2SAT 95
[2023-05-02] MEDS: Gabapentin 100 MG Capsule PO ×3 (05:25→20:19)
[2023-05-02] MEDS: Acetaminophen 500 MG Tablet 1000 MG PO ×3 (05:25→20:19)
[2023-05-02 05:30] LABS: Absolute Neutrophil Count 2.8 X10^3/uL (2.0-7.7); Basophil# 0.07 X10^3/uL; Basophil% 1.2 % (0-1); Eosinophil# 0.18 X10^3/uL; Eosinophils% 3.1 % (0-5); Hematocrit 43.6 % (40-54); Hemoglobin 13.9 g/dL (13.0-16.5); Lymphocyte % 35.7 % (19-41); Mean Corp Hgb Conc 31.9 g/dL (32-36); Mean Corpuscular Hgb 28.8 pg (27.0-32.0); Mean Corpuscular Volume 90.5 fL (80-94); Mean Platelet Vol. 9.4 fl (6.2-12.0); Monocyte# 0.68 X10^3/uL; Monocyte% 11.6 % (0-10); NRBC Flagged by Analyzer 0 % (0-5); Neutrophil % 47.5 % (47-70); Platelet Count 234 K/mm3 (150-450); RBC Distribution Width SD 42.5 fl (35.1-43.9); Red Blood Count 4.82 M/mm3 (4.6-6.2); White Blood Count 5.9 K/mm3 (4.4-11.0)
[2023-05-02 06:11] LABS: Anion Gap 4 (5-15); BUN 20 mg/dL (7-18); BUN/Creat Ratio 15.7 RATIO (10-20); Calcium,Total 8.7 mg/dL (8.5-10.1); Chloride 110 mmol/L (98-107); Creatinine, Serum 1.27 mg/dL (0.70-1.30); EST Glomerular Filtration Rate 63 mL/min (>60); Est Glom Filt Rate - Afr Amer 76 mL/min (>60); Estimated Creatinine Clearance 70.25 ml/min; Glucose 108 mg/dL (74-106); Potassium 3.9 mmol/L (3.5-5.1); Sodium Level 141 mmol/L (136-145)
--- NOTE | 2023-05-02 08:32 | PCM.PN.HOSP ---
Reason for Visit Reason for Visit: Diagnoses Spinal stenosis, thoracic region (04/24/23) Unspecified injury of lower back, initial encounter (04/24/23) Sprain of unspecified ligament of left ankle, initial encounter (04/24/23) Unspecified fall, initial encounter (04/24/23) Subjective Subjective No change in clinical condition still awaiting insurance approval prior to transfer to [facility] Objective Data Objective Data Vital Signs: Vital Signs Temp Pulse Resp BP Pulse Ox O2 Del Method O2 Flow Rate 97.4 F L 72 16 123/82 H 95 Room Air 8 05/02/23 02:50 05/02/23 02:50 05/02/23 02:50 05/02/23 02:50 05/02/23 02:50 05/02/23 02:50 04/30/23 22:00 FiO2 98 04/30/23 22:00 Oxygen Flow Rate (L/min) 8 Oxygen Delivery Method Room Air Weight: 140.264 kg Body Mass Index (BMI) 44.4 Intake & Output: Intake and Output for Last 24 Hours 04/30/23 05/01/23 05/02/23 23:59 23:59 23:59 Intake Total 1600 / 1900 900 / 900 200 / 200 Output Total 1300 / 1900 825 / 825 Balance 300 / 0 75 / 75 200 / 200 Lab / Micro Data 05/02/23 04:47 05/02/23 04:47 Labs: Laboratory Results - last 24 hr 05/02/23 04:47: WBC 5.9, RBC 4.82, Hgb 13.9, Hct 43.6, MCV 90.5, MCH 28.8, MCHC 31.9 L, RDW Std Deviation 42.5, RDW Coeff of Vasiliy 13.0, Plt Count 234, MPV 9.4, Immature Gran % (Auto) 0.900, Neut % (Auto) 47.5, Lymph % (Auto) 35.7, [place] % (Auto) 11.6 H, Eos % (Auto) 3.1, Baso % (Auto) 1.2 H, Absolute Neuts (auto) 2.8, Absolute Lymphs (auto) 2.10, Nucleated RBC % 0, Sodium 141, Potassium 3.9, Chloride 110 H, Carbon Dioxide 27.0, Anion Gap 4 L, BUN 20 H, Creatinine 1.27, Estim Creat Clear Calc 70.25, Est GFR (MDRD) Af Amer 76, Est GFR (MDRD) Non-Af 63, BUN/Creatinine Ratio 15.7, Glucose 108 H, Calcium 8.7 Rhythm Strip Rhythm Strip: Sinus Rhythm Rate: 90 Ectopy: None Physical Exam Narrative GENERAL: cooperative HEENT: Atraumatic; normocephalic EYES; Anicteric, Normal Conjunctiva NECK; supple, normal thyroid, RESPIRATORY: Diminished to auscultation CARDIOVASCULAR: Regular S1 S2, GI: soft, normoactive bowel sounds, : No Renal angle tenderness; EXTREMITIES: No edema, no clubbing, MUSCULOSKELETAL: Left ankle in a boot NEURO: Awake; no lateralizing signs. SKIN: No Rash PSYCH; Flat affect Assessment & Plan Assessment/Plan (1) Thoracic spinal stenosis: (2) Injury of back due to fall: PLAN: Plan Patient is a 52-year-old male who presented to [facility] ED on 03/28/2023 with low back pain after a fall. 1. Acute thoracic and lumbar back pain, thoracic spinal stenosis Secondary to mechanical fall on day of admission. L-spine MRI in ED showed prominent defect at T10-11 disc space level with moderate central canal stenosis, mild stenosis in the low lumbar area. Consult was placed to Dr. Navarrete with spine surgery patient did receive IV Decadron. ? 04/29/2023 still complains of some back pain. Transferred to [facility]dc facility pending ?04/30/2023;Patient seen has tolerated physical therapy well so far still complains of some back pain. Awaiting insurance pre-CERT prior to being transferred to a fdc facility ? 05/01/2023 patient still has back pain we will continue PT OT as tolerated 2. Left ankle sprain ? Patient treated with PT OT as well as application of a boot 3. Suspected 3 sleep apnea ? Pap therapy at night patient may need to undergo sleep study as outpatient 4. Acute kidney injury ? Creatinine on admission was 1.52. Patient kidney function did improve to 1.22 with IV hydration 5. Newly diagnosed hypertension ? Patient started on scheduled antihypertensives 6. Class III obesity with BMI of 44.4 ? Complicating care weight loss advised 7. Gout ? Patient is on allopurinol did continue 8. Rheumatoid arthritis ? Patient is on hydroxychloroquine as well as Humira which was held on admission plan is to resume on discharge 9. Physical deconditioning - Requested for PT OT eval and social insurance analyst to assist with discharge planning 10. DVT prophylaxis ? SC Lovenox Time spent in the patient's overall evaluation,decision-making process, review of diagnostic data, adjustment of management, discussion with other providers, nursing nursing and ancillary staff involved in patient's care documentation,35 Minutes Charges/Coding Visit Charges Inpatient E&M: 17616 Subs Hosp L2
[2023-05-02 10:14] VITALS: BP 123/76; PULSE 84; RESP 18; TEMP 36.6; O2SAT 96
[2023-05-02] MEDS: Senna Tablet 1 TABLET PO ×2 (10:16→20:19)
[2023-05-02] MEDS: amLODIPine 10 MG Tablet PO (10:16)
[2023-05-02] MEDS: Enoxaparin 40 MG/0.4 ML Syringe SC (10:16)
[2023-05-02] MEDS: Polyethylene Glycol 3350 17 GM PACKET PO (10:16)
--- NOTE | 2023-05-02 14:05 | CASEMGMT ---
Social Work Pt receivied email from Raine Ramírez at [facility] requesting documents be completed. RACHELE printed documents for pt and assisted in completing. Document faxed and emailed balk to Raine with request for futher instruction and information on approval of SNF. No reply or communication from Raine at this time. THOR Patel
[2023-05-02 15:23] VITALS: BP 126/61; PULSE 86; RESP 16; TEMP 36.5; O2SAT 97
--- NOTE | 2023-05-02 17:41 | CASEMGMT ---
Social Work No reply from Raine Ramírez at [facility]. All requested information has been sent along will follow up communication. SW spoke with pt regarding returning home and pt does not feel he is able to return home as he is unable to complete stairs independently to get into the home and he cannot complete toileting and ADLs independently. [facility] is able to accept pt if the are able to negotiate a rick with [facility]. They cannot do this until C9 is approved. Pt to remain at hospital until response from [facility] makes determination on SNF placement. THOR Patel
[2023-05-02 19:44] VITALS: PULSE 87; O2SAT 95
[2023-05-02] MEDS: ADALIMUMAB 40 MG/0.4 ML SC (20:04)
[2023-05-02 20:34] VITALS: BP 163/89; PULSE 81; RESP 18; TEMP 36.3; O2SAT 93
[2023-05-02 23:07] VITALS: RESP 20; O2SAT 69
[2023-05-03] VITALS (10 sets, daily range): BP systolic 118–147; BP diastolic 66–86; PULSE 74–91; RESP 16–20; TEMP 36.3–36.8; O2SAT 60–99
[2023-05-03] MEDS: Acetaminophen 500 MG Tablet 1000 MG PO ×3 (05:43→22:58)
[2023-05-03] MEDS: Gabapentin 100 MG Capsule PO ×3 (05:44→22:58)
--- NOTE | 2023-05-03 08:01 | PN.HOSP_ITS ---
Reason for Visit Reason for Visit: Diagnoses Spinal stenosis, thoracic region (04/24/23) Unspecified injury of lower back, initial encounter (04/24/23) Sprain of unspecified ligament of left ankle, initial encounter (04/24/23) Unspecified fall, initial encounter (04/24/23) Subjective Subjective Patient complains of low back pain. Transferred to custodial facility still pending Objective Data Objective Data Vital Signs: Vital Signs Temp Pulse Resp BP Pulse Ox O2 Del Method O2 Flow Rate 97.4 F L 81 20 H 142/80 H 93 Venturi Mask 8 05/03/23 05:40 05/03/23 05:40 05/03/23 05:40 05/03/23 05:40 05/03/23 07:00 05/03/23 07:00 05/03/23 07:00 FiO2 35 05/03/23 07:00 Oxygen Flow Rate (L/min) 8 Oxygen Delivery Method Venturi Mask Weight: 140.264 kg Body Mass Index (BMI) 44.4 Intake & Output: Intake and Output for Last 24 Hours 05/01/23 05/02/23 05/03/23 23:59 23:59 23:59 Intake Total 900 / 900 800 / 800 Output Total 825 / 825 1000 / 1000 425 / 425 Balance 75 / 75 -200 / -200 -425 / -425 Lab / Micro Data 05/02/23 04:47 05/02/23 04:47 Rhythm Strip Rhythm Strip: Sinus Rhythm Rate: 90 Ectopy: None Physical Exam Narrative GENERAL: cooperative HEENT: Atraumatic; normocephalic EYES; Anicteric, Normal Conjunctiva NECK; supple, normal thyroid, RESPIRATORY: Diminished to auscultation CARDIOVASCULAR: Regular S1 S2, GI: soft, normoactive bowel sounds, : No Renal angle tenderness; EXTREMITIES: No edema, no clubbing, MUSCULOSKELETAL: Left ankle in a boot NEURO: Awake; no lateralizing signs. SKIN: No Rash PSYCH; Flat affect Assessment & Plan Assessment/Plan (1) Thoracic spinal stenosis: (2) Injury of back due to fall: PLAN: Plan Patient is a 52-year-old male who presented to [facility] ED on 03/28/2023 with low back pain after a fall. 1. Acute thoracic and lumbar back pain, thoracic spinal stenosis Secondary to mechanical fall on day of admission. L-spine MRI in ED showed prominent defect at T10-11 disc space level with moderate central canal stenosis, mild stenosis in the low lumbar area. Consult was placed to Dr. Navarrete with spine surgery patient did receive IV Decadron. ? 04/29/2023 still complains of some back pain. Transferred to custodial facility pending ?04/30/2023;Patient seen has tolerated physical therapy well so far still complains of some back pain. Awaiting insurance pre-CERT prior to being transferred to a custodial facility ? 05/01/2023 patient still has back pain we will continue PT OT as tolerated 2. Left ankle sprain ? Patient treated with PT OT as well as application of a boot 3. Suspected 3 sleep apnea ? Pap therapy at night patient may need to undergo sleep study as outpatient 4. Acute kidney injury ? Creatinine on admission was 1.52. Patient kidney function did improve to 1.22 with IV hydration 5. Newly diagnosed hypertension ? Patient started on scheduled antihypertensives 6. Class III obesity with BMI of 44.4 ? Complicating care weight loss advised 7. Gout ? Patient is on allopurinol did continue 8. Rheumatoid arthritis ? Patient is on hydroxychloroquine as well as Humira which was held on admission plan is to resume on discharge 9. Physical deconditioning - Requested for PT OT eval and social service manager to assist with discharge planning 10. DVT prophylaxis ? SC Lovenox Time spent in the patient's overall evaluation,decision-making process, review of diagnostic data, adjustment of management, discussion with other providers, nursing nursing and ancillary staff involved in patient's care documentation, 25 minutes Charges/Coding Visit Charges Inpatient E&M: 82362 [facility] Hosp L1
[2023-05-03] MEDS: amLODIPine 10 MG Tablet PO (08:49)
[2023-05-03] MEDS: Enoxaparin 40 MG/0.4 ML Syringe SC (08:50)
[2023-05-04 03:09] VITALS: BP 132/85; PULSE 73; RESP 18; TEMP 36.6; O2SAT 95
[2023-05-04] MEDS: Acetaminophen 500 MG Tablet 1000 MG PO ×3 (05:16→21:54)
[2023-05-04] MEDS: Gabapentin 100 MG Capsule PO ×3 (05:17→21:55)
--- NOTE | 2023-05-04 07:36 | PCM.PN.HOSP ---
Reason for Visit Reason for Visit: Diagnoses Spinal stenosis, thoracic region (04/24/23) Unspecified injury of lower back, initial encounter (04/24/23) Sprain of unspecified ligament of left ankle, initial encounter (04/24/23) Unspecified fall, initial encounter (04/24/23) Subjective Subjective Prior toPatient seen no change in condition awaiting fdc facility Objective Data Objective Data Vital Signs: Vital Signs Temp Pulse Resp BP Pulse Ox O2 Del Method O2 Flow Rate 97.9 F 73 18 132/85 H 95 Venturi Mask 8 05/04/23 03:09 05/04/23 03:09 05/04/23 03:09 05/04/23 03:09 05/04/23 03:09 05/04/23 03:09 05/03/23 07:00 FiO2 35 05/03/23 07:00 Oxygen Flow Rate (L/min) 8 Oxygen Delivery Method Venturi Mask Weight: 140.264 kg Body Mass Index (BMI) 44.4 Intake & Output: Intake and Output for Last 24 Hours 05/02/23 05/03/23 05/04/23 23:59 23:59 23:59 Intake Total 800 / 800 Output Total 1000 / 1000 725 / 725 675 / 675 Balance -200 / -200 -725 / -725 -675 / -675 Lab / Micro Data 05/02/23 04:47 05/02/23 04:47 Rhythm Strip Rhythm Strip: Sinus Rhythm Rate: 90 Ectopy: None Physical Exam Narrative GENERAL: cooperative HEENT: Atraumatic; normocephalic EYES; Anicteric, Normal Conjunctiva NECK; supple, normal thyroid, RESPIRATORY: Diminished to auscultation CARDIOVASCULAR: Regular S1 S2, GI: soft, normoactive bowel sounds, : No Renal angle tenderness; EXTREMITIES: No edema, no clubbing, MUSCULOSKELETAL: Left ankle in a boot NEURO: Awake; no lateralizing signs. SKIN: No Rash PSYCH; Flat affect Assessment & Plan Assessment/Plan (1) Thoracic spinal stenosis: (2) Injury of back due to fall: PLAN: Plan Patient is a 52-year-old male who presented to [facility] ED on 03/28/2023 with low back pain after a fall. 1. Acute thoracic and lumbar back pain, thoracic spinal stenosis Secondary to mechanical fall on day of admission. L-spine MRI in ED showed prominent defect at T10-11 disc space level with moderate central canal stenosis, mild stenosis in the low lumbar area. Consult was placed to Dr. aNvarrete with spine surgery patient did receive IV Decadron. ? 04/29/2023 still complains of some back pain. Transferred to fdc facility pending ?04/30/2023;Patient seen has tolerated physical therapy well so far still complains of some back pain. Awaiting insurance pre-CERT prior to being transferred to a fdc facility ? 05/01/2023 patient still has back pain we will continue PT OT as tolerated 2. Left ankle sprain ? Patient treated with PT OT as well as application of a boot 3. Suspected 3 sleep apnea ? Pap therapy at night patient may need to undergo sleep study as outpatient 4. Acute kidney injury ? Creatinine on admission was 1.52. Patient kidney function did improve to 1.22 with IV hydration 5. Newly diagnosed hypertension ? Patient started on scheduled antihypertensives 6. Class III obesity with BMI of 44.4 ? Complicating care weight loss advised 7. Gout ? Patient is on allopurinol did continue 8. Rheumatoid arthritis ? Patient is on hydroxychloroquine as well as Humira which was held on admission plan is to resume on discharge 9. Physical deconditioning - Requested for PT OT eval and social sciences department chair to assist with discharge planning 10. DVT prophylaxis ? SC Lovenox Time spent in the patient's overall evaluation,decision-making process, review of diagnostic data, adjustment of management, discussion with other providers, nursing nursing and ancillary staff involved in patient's care documentation, 25 minutes Charges/Coding Visit Charges Inpatient E&M: 77903 [facility] Hosp L1
[2023-05-04] MEDS: amLODIPine 10 MG Tablet PO (08:03)
[2023-05-04] MEDS: Enoxaparin 40 MG/0.4 ML Syringe SC (08:04)
[2023-05-04 09:00] VITALS: O2SAT 94
[2023-05-04 09:40] VITALS: BP 120/71; PULSE 79; RESP 15; TEMP 36.4; O2SAT 96
[2023-05-04 14:00] VITALS: BP 124/73; PULSE 89; RESP 16; TEMP 36.4; O2SAT 94
[2023-05-04 19:48] VITALS: BP 151/88; PULSE 82; RESP 18; TEMP 36.6; O2SAT 95
[2023-05-04] MEDS: Senna Tablet 1 TABLET PO (21:55)
[2023-05-05 02:48] VITALS: BP 134/89; PULSE 71; RESP 18; TEMP 36.6; O2SAT 95
[2023-05-05] MEDS: Acetaminophen 500 MG Tablet 1000 MG PO ×3 (05:39→21:00)
[2023-05-05] MEDS: Gabapentin 100 MG Capsule PO ×3 (05:39→21:01)
[2023-05-05 07:58] VITALS: O2SAT 96
[2023-05-05 08:43] VITALS: BP 137/93; PULSE 80; RESP 16; TEMP 36.2; O2SAT 95
--- NOTE | 2023-05-05 08:55 | CASEMGMT ---
Social Work SW met w/pt in room in regard to discharge plan. After some discussion, pt still would like to go to rehab. SW explained will call workers comp and see if we can get a hold of someone today. SW called Workers Comp, left a message for Raine Ramírez with [employer], urging her to call back today so we can get pt moved on to the SNF. SW will continue to follow. EULALIA Mary
[2023-05-05] MEDS: Senna Tablet 1 TABLET PO ×2 (09:27→21:00)
[2023-05-05] MEDS: Enoxaparin 40 MG/0.4 ML Syringe SC (09:27)
[2023-05-05] MEDS: amLODIPine 10 MG Tablet PO (09:28)
[2023-05-05 16:00] VITALS: BP 129/77; PULSE 85; RESP 18; TEMP 36.4; O2SAT 99
--- NOTE | 2023-05-05 16:22 | PCM.PN.HOSP ---
Reason for Visit Reason for Visit: Mechanical/work-related fall Subjective Subjective Mr. Sánchez is a 52-year-old morbidly obese white male who presented to emergency department [facility] on 04/24/2023 complaining of mid to low back pain after mechanical fall. Upon presentation the patient complained of paresthesias down both of his legs. He reported that earlier in the day while he was at work he stepped awkwardly off a step while on the stairs. He was unclear how he landed but he heard a snap in his mid back at that time. He reported on presentation he had numbness and tingling with burning pain in the low back and down his leg since that time. He has never had injuries like this previously. He does have a history of rheumatoid arthritis and follows in [place] for this. MRI was obtained and shows significant stenosis at T10 which orthopedic surgery felt was contributing to his complaints and recommended a laminectomy decompression. He was taken to the OR on 04/25/2023 at which time a thoracic T10 laminectomy and T10-T11 bilateral foraminectomy's was performed due to thoracic stenosis at T10 and 11. Postoperatively initially had some trouble with pain control however this seems to be improving. Patient denies any current complaints. He does indicate he would like to go to acute rehab as he does not feel he is able to go home and take care of himself at this time. Case management is trying to get a hold of Workmen's Comp. to get this pre-CERT started for discharge planning. Objective Data Objective Data Vital Signs: Vital Signs Temp Pulse Resp BP Pulse Ox O2 Del Method O2 Flow Rate 97.1 F L 80 16 137/93 H 95 Room Air 8 05/05/23 08:43 05/05/23 08:43 05/05/23 08:43 05/05/23 08:43 05/05/23 08:43 05/05/23 14:00 05/05/23 07:58 FiO2 35 05/05/23 07:58 Oxygen Flow Rate (L/min) 8 Oxygen Delivery Method Room Air Weight: 140.264 kg Body Mass Index (BMI) 44.4 Intake & Output: Intake and Output for Last 24 Hours 05/03/23 05/04/23 05/05/23 23:59 23:59 23:59 Intake Total 500 / 500 Output Total 725 / 725 675 / 675 Balance -725 / -725 -675 / -675 500 / 500 Lab / Micro Data 05/02/23 04:47 05/02/23 04:47 Rhythm Strip Rhythm Strip: Sinus Rhythm Rate: 90 Ectopy: None Physical Exam Const alert, oriented x3, no apparent distress and well nourished; Negative for average body habitus or healthy appearing Constitutional Narrative: Morbidly obese, white male, sitting up in a chair at the bedside on his computer, appears comfortable nontoxic HEENT head/scalp atraumatic and moist oral mucous membranes HEENT Narrative: Mallampati 4, no thrush Head and Scalp: normocephalic Resp normal respiratory effort, no retractions, no use of accessory muscles and clear to auscultation bilaterally Resp Narrative: Distant due to body habitus but clear Auscultation: Negative for rales, rhonchi or wheezes Cardio regular rate, regular rhythm, S1 normal heart sound, S2 normal heart sound, no murmurs, no rub, no gallops and no clicks GI normal to inspection, nondistended, normoactive bowel sounds, soft to palpation and non-tender GI Narrative: Large protuberant abdomen Extremity no clubbing, cyanosis or edema Extremity Narrative: Pedal pulses are 2+, left lower extremity in boot Skin Skin Narrative: Postoperative dressing on his mid back and is clear dry and intact Neuro oriented x3, CN's II-XII intact bilaterally, moves all extremities and no focal motor deficits Speech: speech normal Psych affect normal Psych Narrative: Patient appears comfortable and nontoxic
--- NOTE | 2023-05-05 17:00 | CASEMGMT ---
Social Work Handoff information received from clinical social worker Katelin Dash on status with working with Worker's Compensation on C9 approval for nursing home facility. This promotion writer checked voicemails and received no response back from Raine Ramírez, the assigned case hardener with Worker's Comp. This promotion writer sent an email to Raine at, [email or web address]. Received auto reply that cc out of the building until May 12 and gave two additional people to contact for assistance: [email or web address] and [email or web address]. Sent a secure email to both individuals marking high importance and regarding the need for an answer about the process of approving C9. Met with patient to update. Patient reports has tried to call Raine today and states his voicemail did not reflect she was out of the building until the . Patient asked this promotion writer to contact his company's teleservices representative for Worker's Compensation to update about the delays in responses. The company's teleservices representative for Worker's Comp. is Jevon Ayala ([phone]). Much supportive listening and encouragement provided to patient this date. Plan: Pending Worker's Compensation approval for nursing home facility -EULALIA Morales, MARC *This note was generated with XI[employer]ation software. It may contain incorrect words, spelling, and punctuation that were not noted in review of the chart prior to signing*
[2023-05-05 20:42] VITALS: BP 132/76; PULSE 87; RESP 18; TEMP 37; O2SAT 96
[2023-05-06] MEDS: Gabapentin 100 MG Capsule PO ×3 (05:29→22:06)
[2023-05-06] MEDS: Acetaminophen 500 MG Tablet 1000 MG PO ×3 (05:29→22:07)
[2023-05-06 05:34] VITALS: BP 130/80; PULSE 73; RESP 18; TEMP 36.6; O2SAT 96
[2023-05-06 08:35] LABS: Absolute Neutrophil Count 2.5 X10^3/uL (2.0-7.7); Basophil# 0.06 X10^3/uL; Basophil% 1.2 % (0-1); Eosinophil# 0.16 X10^3/uL; Eosinophils% 3.1 % (0-5); Hematocrit 44.7 % (40-54); Hemoglobin 13.8 g/dL (13.0-16.5); Lymphocyte % 34.7 % (19-41); Mean Corp Hgb Conc 30.9 g/dL (32-36); Mean Corpuscular Hgb 28.3 pg (27.0-32.0); Mean Corpuscular Volume 91.6 fL (80-94); Mean Platelet Vol. 9.5 fl (6.2-12.0); Monocyte# 0.64 X10^3/uL; Monocyte% 12.4 % (0-10); NRBC Flagged by Analyzer 0 % (0-5); Neutrophil % 48.2 % (47-70); Platelet Count 236 K/mm3 (150-450); RBC Distribution Width CV 12.8 % (11.6-14.6); RBC Distribution Width SD 42.8 fl (35.1-43.9); Red Blood Count 4.88 M/mm3 (4.6-6.2); White Blood Count 5.2 K/mm3 (4.4-11.0)
[2023-05-06 08:58] LABS: ALB/GLOB Ratio 0.9 RATIO (0.9-2.4); AST(SGOT) 26 U/L (15-37); Alanine Aminotransfer ALT/SGPT 44 U/L (16-61); Albumin, Serum 3.3 g/dL (3.2-5.0); Alkaline Phosphatase 63 U/L (45-117); Anion Gap 4 (5-15); BUN 13 mg/dL (7-18); BUN/Creat Ratio 11.2 RATIO (10-20); Calcium,Total 9.3 mg/dL (8.5-10.1); Chloride 110 mmol/L (98-107); Creatinine, Serum 1.16 mg/dL (0.70-1.30); EST Glomerular Filtration Rate 70 mL/min (>60); Est Glom Filt Rate - Afr Amer 85 mL/min (>60); Estimated Creatinine Clearance 76.92 ml/min; Globulin 3.6 g/dL (2.2-4.2); Glucose 102 mg/dL (74-106); Magnesium 2.1 mg/dL (1.6-2.6); Phosphorus 3.6 mg/dL (2.5-4.9); Potassium 4.1 mmol/L (3.5-5.1); Protein, Total 6.9 g/dL (6.4-8.2); Sodium Level 142 mmol/L (136-145)
[2023-05-06 09:15] VITALS: BP 146/93; PULSE 79; RESP 18; TEMP 36.6; O2SAT 95
[2023-05-06] MEDS: Enoxaparin 40 MG/0.4 ML Syringe SC ×2 (09:16→22:09)
[2023-05-06] MEDS: amLODIPine 10 MG Tablet PO (09:17)
--- NOTE | 2023-05-06 13:40 | CASEMGMT ---
Social Work Received email from Rajwinder Garvey at [employer] ([email or web address]; [phone]) with a copy of C-9 gearcase assembler Raine Ramírez processed on 05.01.23. C-9 was denied based for claim pending receipt/review of FRI and medical. This show card writer emailed Rajwinder back and indicated that since 05.01.23, at [facility] sent clinicals on 05.01.23, as well as on 05.02.23 sent additional information needed from the patient. Scanned and securely emailed this information to Rajwinder. This email correspondence occurred at a 0810 this morning. No response back from Rajwinder via email by 1340. Called Rajwinder and left detailed voice message indicating a need for an update on status of C-9 approval, based on information sent on 05.02.23 (and again today by email). Inquired whether an additional C-9 needs to be requested, and asked for a details response as to what the [facility] needs from [facility] in order to keep patient's transition of care moving forward, noting patient has been in the hospital now for 12 days. Called Murray Morrissey, , who in charge of who patient's work company contracts with for Worker's Comp claims. Left message with this show card writer's name/number, but also at patient's request information about slow response times from [facility]. Plan: SNF is pending. Waiting on Worker's Comp to respond back about whether a new C-9 is needed, or if [facility] has enough information to reprocess the SNF request. -JESUSITA Morales
--- NOTE | 2023-05-06 15:05 | PCM.PN.HOSP ---
Reason for Visit Reason for Visit: Back pain status post fall Subjective Subjective No issues overnight. Patient again asks today if there is any way we can get his polysomnography as an inpatient or directly transport him for polysomnography as an outpatient after discharge. I discussed with him again today that there is no way we can do that and he will have to follow-up as an outpatient. There is no emergent need for this testing however we highly recommend because the chronic implications of longstanding untreated sleep apnea are many. He voiced understanding I did tell him we could set up an outpatient follow-up appointment with pulmonary medicine to get this set up but he states he is from [place] and would like to follow-up closer to home. I told him to let me know if he changes his mind and he indicated he would. Objective Data Objective Data Vital Signs: Vital Signs Temp Pulse Resp BP Pulse Ox O2 Del Method O2 Flow Rate 97.9 F 79 18 146/93 H 95 Room Air 8 05/06/23 09:15 05/06/23 09:15 05/06/23 09:15 05/06/23 09:15 05/06/23 09:15 05/06/23 09:15 05/05/23 07:58 FiO2 35 05/05/23 07:58 Oxygen Flow Rate (L/min) 8 Oxygen Delivery Method Room Air Weight: 140.264 kg Body Mass Index (BMI) 44.4 Intake & Output: Intake and Output for Last 24 Hours 05/04/23 05/05/23 05/06/23 23:59 23:59 23:59 Intake Total 980 / 980 Output Total 675 / 675 Balance -675 / -675 980 / 980 Lab / Micro Data 05/06/23 07:33 05/06/23 07:33 Labs: Laboratory Results - last 24 hr 05/06/23 07:33: WBC 5.2, RBC 4.88, Hgb 13.8, Hct 44.7, MCV 91.6, MCH 28.3, MCHC 30.9 L, RDW Std Deviation 42.8, RDW Coeff of Vasiliy 12.8, Plt Count 236, MPV 9.5, Immature Gran % (Auto) 0.400, Neut % (Auto) 48.2, Lymph % (Auto) 34.7, [place] % (Auto) 12.4 H, Eos % (Auto) 3.1, Baso % (Auto) 1.2 H, Absolute Neuts (auto) 2.5, Absolute Lymphs (auto) 1.80, Nucleated RBC % 0, Sodium 142, Potassium 4.1, Chloride 110 H, Carbon Dioxide 28.0, Anion Gap 4 L, BUN 13, Creatinine 1.16, Estim Creat Clear Calc 76.92, Est GFR (MDRD) Af Amer 85, Est GFR (MDRD) Non-Af 70, BUN/Creatinine Ratio 11.2, Glucose 102, Calcium 9.3, Phosphorus 3.6, Magnesium 2.1, Total Bilirubin 0.30, AST 26, ALT 44, Alkaline Phosphatase 63, Total Protein 6.9, Albumin 3.3, Globulin 3.6, Albumin/Globulin Ratio 0.9 Rhythm Strip Rhythm Strip: Sinus Rhythm Rate: 90 Ectopy: None Physical Exam Const alert, oriented x3, no apparent distress and well nourished; Negative for average body habitus or healthy appearing Constitutional Narrative: Morbidly obese, white male, sitting up in bed, appears comfortable nontoxic General Appearance: cooperative Psych affect normal Psych Narrative: Patient appears comfortable and nontoxic Assessment & Plan Assessment/Plan (1) Thoracic spinal stenosis: (2) Injury of back due to fall: PLAN: Plan Acute thoracic and lumbar back pain/thoracic spinal stenosis -Secondary to mechanical fall on day of admission. -L-spine MRI in ED showed prominent defect at T10-11 disc space level with moderate central canal stenosis, mild stenosis in the low lumbar area. -Postop day 11 T10 laminectomy/T10-11 bilateral foraminotomies ? Continue postoperative pain medication ? Continue physical therapy ? Working on placement--> communication has been difficult with Workmen's Comp. Left ankle sprain ? Continue PT/OT -Maintain left lower extremity boot -Outpatient follow-up Obstructive sleep apnea -Patient has had marked desaturations into the 40s at night if he is not on supplemental oxygen -Will qualify for supplemental oxygen at night -Recommend outpatient polysomnography after discharge -Have had multiple conversations with the patient with regards to his needing this however needs are not acute but the chronic manifestations of untreated sleep apnea are vast IVÁN -Resolved -Serum creatinine admission 0.5 to Hypertension-newly diagnosed -Blood pressures are improved -Continue amlodipine 10 mg History of gout -Continue home allopurinol -Restart home probenecid at discharge as this is nonformulary RA ? Restart home hydroxychloroquine -Continue home Humira -Continue home duloxetine for pain Morbid obesity -44.4 -Complicates treatment, prognosis, outcomes -Recommend weight loss Debility -PT/OT following DVT prophylaxis ? SC Lovenox currently on 40 mg daily but will increase to twice daily due to morbid obesity CODE STATUS -Full code Charges/Coding Visit Charges Inpatient E&M: 64031 [facility] Hosp L1
[2023-05-06 15:06] VITALS: BP 134/67; PULSE 88; RESP 16; TEMP 36.6; O2SAT 94
--- NOTE | 2023-05-06 17:57 | CASEMGMT ---
Profound Work Received call back from Jevon Yuni ([phone]) who reports the oil field caser assigned to patient's case while Raine Ramírez is off, is Jenn Zaragoza ([phone]). Called Jenn and was able relay what has been done, what this commercial real estate underwriter knows, and importance of working through next steps for patient's transition of care needs. Jenn shared that patient's employer has up to 30 days from receipt of medical records to make a determination about this Worker's Compensation claim. Jenn reports can see that medical records were received on 05/02/2023 and uploaded into the system today, 05/06/2023. Jenn expressed questions about any prior medical conditions which may have impacted this current injury, questioning notation in patient's record about history of intermittent back pain which has been treated by chiropractor and a history of rheumatoid arthritis. Jenn reports Worker's Compensation and the employer would want to review some of these notes before making a determination about the claim. Jenn expressed that if long-term facility is still needed may need to look at billing patient's insurance or checking to see if the nursing facility would agree to accept patient and not bill for services until the claim is sorted through. This commercial real estate underwriter inquired whether a new C9 is needed, based on the fact the first C9 was denied. Jenn denied a new C9 would be needed, and that Jenn would update the C9 and fax to [phone] (the fax number listed on patient's C9 submission). Updated Dr. Frey. Called [facility] and spoke to Worker's ophthalmologist retina specialist, Anel, about conversation with Worker's Compensation today. Inquired whether Dr. Navarrete has any additional information to add to the patient's medical record regarding injury and nature of injury, which might help support the processing of the Worker's Compensation claim. Anel will send a message to Dr. Navarrete, though not certain Dr. Navarrete has any additional information to provide. Met with patient in room, and updated to conversation with Worker's Compensation/[employer] case manger Jenn Zaragoza today. Patient provided this commercial real estate underwriter with patient's chiropractor and also specialist for rheumatoid arthritis. Provided this commercial real estate underwriter a handout with physician contact information. This commercial real estate underwriter urged patient to follow-up with his physicians on sending Worker's Compensation/[employer] additional office notes. This commercial real estate underwriter explored with patient plan for long-term facility and option of having long-term facility billed patient's private insurance. Patient declined this option. Reinforced the patient that Worker's Compensation can take up to 30 days to make a decision, and that from a medical standpoint patient is ready for discharge, just trying to sort through the discharge plan. Patient did ask about sleep study upon home-going, if were to go home. This commercial real estate underwriter had done some checking with the hospitalist, and unable to schedule a sleep study immediately upon discharge, as needed physician to follow so would need to be ordered by an outpatient physician. Patient reports found out that [facility] has an opening in the sleep study at 930 next Friday. This commercial real estate underwriter suggested that maybe patient's PCP would be willing to order said study as the PCP could follow the patient in the community. Patient reports plan to call the PCP to see if this can be ordered as an outpatient. This commercial real estate underwriter faxed to Jenn Zaragoza a list of patient's outpatient physician providers. Faxed to [phone]. Plan: To be determined. correction facility is pending. Social work will follow-up with patient again on discharge planning needs as it appears the Worker's Compensation claim will not immediately be sorted out. -EULALIA Morales, PLATE SHEAR OPERATOR
[2023-05-06 22:02] VITALS: BP 152/92; PULSE 80; RESP 18; TEMP 36.7; O2SAT 96
[2023-05-07] VITALS (8 sets, daily range): BP systolic 116–145; BP diastolic 71–95; PULSE 76–83; RESP 16–20; TEMP 36.3–36.6; O2SAT 58–99
[2023-05-07] MEDS: Gabapentin 100 MG Capsule PO ×2 (04:54→13:24)
[2023-05-07] MEDS: Acetaminophen 500 MG Tablet 1000 MG PO ×2 (04:54→13:23)
[2023-05-07] MEDS: Enoxaparin 40 MG/0.4 ML Syringe SC (07:59)
[2023-05-07] MEDS: DULoxetine Hcl 30 MG Capsule PO (07:59)
[2023-05-07] MEDS: Hydroxychloroquine 200 MG Tablet PO (07:59)
[2023-05-07] MEDS: amLODIPine 10 MG Tablet PO (07:59)
--- NOTE | 2023-05-07 15:00 | CASEMGMT ---
Social Work SW received a fax from Jenn at [employer]. C9 for usp facility was declined a second time. SW spoke with [employer] who reports pt is doing well with therapy and can return home at this time. After review of clinicals, it is likely that health insurance would also deny SNF stay as pt has progressed well with therapy. DME has been recommended to pt by PT including a raised toilet seat, leak hunter, grab bar, shower chair and toilet aid. SW met with pt to discuss discharge plan. Pt updated on denial of C9 for SNF and that pt is doing well enough to return home at this time. SW discussed out patient therapy option and DME with pt. Pt concerns about cost of DME. SW updated that insurance does not pay for this type of equipment. SW provided pt with [facility] for financial assistance. Pt called his and reports she and he are agreeable to go home today with outpatient therapy at [facility] or [facility]. Phone numbers provided for these agencies. Pt's to [employer] pickling line pickler needed DME. Pt's friend to provide transportation home. Physician updated and pt is ready for dc today. RNCM updated. [facility] updated that pt will not be coming. Plan: home with out patient therapy THOR Patel
--- NOTE | 2023-05-07 16:20 | DS.PCM_ITS ---
Providers Date of Admission: 04/24/23 Date of Discharge: 05/07/23 Primary Care Physician: Dr. Evangelist Guzman MD Reason For Visit: SPINAL CORD INJURY Diagnosis Discharge Diagnosis (1) Thoracic spinal stenosis: Status: Acute Code(s): M48.04 - Spinal stenosis, thoracic region (2) Injury of back due to fall: Status: Acute Code(s): S39.92XA - Unspecified injury of lower back, initial encounter; W19.XXXA - Unspecified fall, initial encounter Medications at Discharge Home Medications adalimumab 40 mg/0.4 mL subcutaneous pen kit (Humira(CF) Pen) 40 mg subcut Q7D rheumatoid arthritis 04/24/23 duloxetine 30 mg capsule,delayed release 30 mg PO DAILY rheumatoid arthritis 04/24/23 hydroxychloroquine 200 mg tablet 200 mg PO DAILY gout 04/24/23 prednisone 20 mg tablet 20 mg PO PRN gout 04/24/23 probenecid 200 mg PO BID gout 04/24/23 amlodipine 10 mg tablet 10 mg PO DAILY #30 tabs 05/07/23 gabapentin 100 mg capsule 200 mg (2 x 100 mg) PO Q8 #84 caps 05/07/23 oxycodone 5 mg tablet 5 mg PO Q6H PRN pain 7 days #28 tabs 05/07/23 polyethylene glycol 3350 17 gram oral powder packet 17 g PO DAILY #0 ea 05/07/23 sennosides 8.6 mg tablet (senna) 8.6 mg PO BID #28 tabs 05/07/23 Hospital Course Operations - (T10 laminectomy, T10-11 bilateral foraminotomies) Procedures - (Overnight pulse oximetry) Summary of Care Provided Minutes Spent on Discharge: 38 Hospital Course: Mr. Sánchez is a 52-year-old morbidly obese white male who presented to emergency department [facility] on 04/24/2023 complaining of mid to low back pain after mechanical fall. Upon presentation, the patient complained of paresthesias down both of his legs which was evidently new. He reported that earlier in the day while he was at work he stepped awkwardly off a step while on the stairs. He was unclear how he landed but he heard a snap in his mid back at that time. He reported on presentation he had numbness and tingling with burning pain in the low back and down his leg since that time. He denied ever having an injury like this previously but had had previous issues with chronic pain. He does have a history of rheumatoid arthritis and follows in [place] for this. MRI was obtained and shows significant stenosis at T10 which orthopedic surgery felt was contributing to his complaints and recommended a laminectomy decompression. He was taken to the OR on 04/25/2023 at which time a thoracic T10 laminectomy and T10-T11 bilateral foraminectomy's was performed due to thoracic stenosis at T10 and 11. Postoperatively initially had some trouble with pain control however this seems to be improving. Also, postoperatively he was noted to be hypoxic after sedation and an overnight pulse oximetry was performed in which she frequently desatted. He was assessed for sleep apnea with [facility] and was positive for all asked questions. We advised him to and obtain an outpatient polysomnography after discharge which she is setting up at the time of discharge and feels that he will have it done next Friday. We did try to set him up with overnight supplemental oxygen until we can get a sleep study set up but I do feel he is going to require possibly BiPAP but at least CPAP to maintain appropriate oxygen saturations while sleeping. This is likely a chronic issue for him and we discussed that he is probably been doing this for some time. We did discuss the ramifications of untreated sleep apnea over time as well. His blood pressure was noted to be elevated. He was started on amlodipine 10 mg daily with improvement his blood pressure to goal for the most part of 130/80 or less. Slowly with therapy he improved to the point where he was able to go home. Initially there was concern that he may require long term facility however his mobility and self-care improved to the point where he was able to be discharged home on 05/07/2023. We discharged him with a short prescription for pain medication and gabapentin, month supply of amlodipine and supplemental oxygen nocturnally. Case management set up DME supply for assi stive devices upon discharge for self-care and he will continue with outpatient therapy after discharge. He was instructed that he may take a shower and get his incision wet. He was instructed to pat it dry following and replace an ABD with tape and he has a follow-up appointment to see orthopedic surgery for his back on 05/16/[address] Bar. He was also instructed to follow-up with Dr. Joseph Montez for his left ankle sprain and has an appointment set up for this as well. He is to see his primary care physician within the next 1 to 2 weeks and again we will get set up for a polysomnography test after discharge. Discharge diagnoses: Acute thoracic and lumbar back pain Thoracic spinal stenosis at T10 and 11 Left ankle sprain KIMBERLY-undiagnosed IVÁN-resolved Newly diagnosed hypertension History of gout Rheumatoid arthritis Morbid obesity Physical Exam Const alert, oriented x3, no apparent distress and well nourished; Negative for average body habitus or healthy appearing Constitutional Narrative: Morbidly obese, white male, sitting up in a chair at the bedside, appears comfortable, nontoxic General Appearance: cooperative, comfortable, well kempt and well developed Orientation / Consciousness: awake, oriented to person, oriented to place and oriented to time Exam Limitations: no limitations Nutritional Appearance: morbidly obese HEENT normocephalic, head/scalp atraumatic, hearing grossly normal bilaterally, nasal mucous membranes and turbinates normal and moist oral mucous membranes HEENT Narrative: Mallampati 4, to Eyes PERRL, EOMs intact bilaterally and conjunctivae normal Eyes Narrative: No scleral icterus Neck no lymphadenopathy and supple Neck Narrative: Trachea midline, no thyroid enlargement, neck is short and thick Resp normal respiratory effort, normal air movement, no retractions, no use of accessory muscles and clear to auscultation bilaterally Resp Narrative: Distant due to body habitus but clear Auscultation: Negative for rales, rhonchi or wheezes Cardio regular rate, regular rhythm, S1 normal heart sound, S2 normal heart sound, no murmurs, no rub, no gallops, no clicks and peripheral pulses 2+ throughout GI normal to inspection, nondistended, normoactive bowel sounds, soft to palpation, non-tender and non-distended GI Narrative: Large protuberant abdomen Back/Spine Back/Spine Narrative: Mild tenderness to postoperative area of back, area is covered with dressing in place which is clean dry and tach Extremity no clubbing, cyanosis or edema Extremity Narrative: Pedal pulses on right is 2+, left lower extremity in boot Skin skin turgor normal and no jaundice Neuro oriented x3, CN's II-XII intact bilaterally, moves all extremities, no focal motor deficits and no sensory deficits noted Speech: speech normal Psych mental status grossly normal and affect normal Psych Narrative: Patient appears comfortable and nontoxic Weight / BMI Weight Weight: 140.264 kg Body Mass Index (BMI) 44.4 ABG / Lab / Microbiology Data 05/06/23 07:33 05/06/23 07:33 D/C Instructions Discharge Diet: Low fat / Low cholesterol Discharge Activity: May Not Drive, May Shower (Do not soak operative area in water and pat area dry following shower) and - (May not return to work until cleared by Dr. Bar) Weight Bearing Status: Weight bearing as tolerated Keep extremity elevated above heart level: Left Leg Cleanse incision/area with: Soap & Water (Pat dry after shower and recover area with gauze and tape) Meaningful Use Info Meaningful Use Diagnoses (Choose all that apply): None applicable Discharge Plan Admission Admit Date/Time: 04/24/23 14:25 Primary Reason for Your Visit: Back pain status post fall Attending Provider: Constanza Frey Primary Care Provider: Evangelist Guzman Consulting Providers: Hitesh Esposito; Cassandra Weiss; Evangelist Shah Instructions Additional Instructions / Restrictions: 1. Please obtain sleep study as soon as you are able to get it scheduled Discharge Orders/Prescriptions Prescriptions: New amlodipine 10 mg Tablet 10 mg PO DAILY Qty: 30 1RF gabapentin 100 mg Capsule 200 mg PO Q8 Qty: 84 0RF oxycodone 5 mg Tablet 5 mg PO Q6H PRN (Reason: pain) 7 Days Qty: 28 0RF sennosides [senna] 8.6 mg Tablet 8.6 mg PO BID Qty: 28 0RF Rx Instructions: hold for loose stool polyethylene glycol 3350 17 gram Powder In Packet 17 g PO DAILY Qty: 0 0RF Rx Instructions: hold for loose stool Continued Humira(CF) Pen 40 mg/0.4 mL pen injector kit 40 mg SUBCUT Q7D duloxetine 30 mg capsule,delayed release(DR/EC) 30 mg PO DAILY hydroxychloroquine 200 mg tablet 200 mg PO DAILY prednisone 20 mg tablet 20 mg PO PRN Patient Comments: pt states he has 5mg and 20 mg that he takes prn for gout flare up probenecid 200 mg PO BID Referrals / Follow Up: Evangelist Guzman MD [Primary Care Provider] - In 1 Week Murali Bar DO [Med Staff - Active Staff] - 05/16/23 1:45 pm (Please arrive one half hour early to the appointment.) Joseph Montez MD [Med Staff - Active Staff] - 05/22/23 10:30 am (This appo intment will be with Dr. Angel Balderas. Please arrive one half hour early.) Disposition Disposition (needs filled in before D/C Order can be placed): Home, Self Care Charges/Coding Visit Charges Inpatient E&M: 71664 Disch Hosp >30min
--- NOTE | 2023-05-07 17:33 | CASEMGMT ---
Addendum entered by Laila James 05/08/23 15:18: Per Silverio @ [facility], they verified that they are in network w/pt's insurance and he confirms oxygen was set up @ pt's home last evening. Original Note: [facility] NOTE: Pt being discharged home. called in and spoke w/this [facility] and inquired about dsg changes and DME. Questions answered. She was made aware pt has been provided w/information re: DME from therapy and SW. She states she plans to corn picker DME this evening. She states she she is working on getting a sleep-study set up for pt and they are awaiting referral from PCP. Pt provided w/OP script for PT/OT and given phone #'s to locations he told SW that he is interested in going to. Instructed on use of script and questions answered. DUKE CONRAD spoke w/Leila, RT, re: overnight trending pulse ox results and home O2. Script for O2 @ HS obtained from Dr Frey and referral sent to [facility] via [facility]. DUKE CONRAD spoke w/Silverio @ [facility] who states [employer] is in-network w/[employer], but he was not able to verify pt's specific plan is in network. He states they will set up HS O2 tonight for pt and will continue to work on insurance verification and will reach out to patient if further information is needed. Silverio also verifies they do have simple face masks and venti-masks. DUKE CONRAD to room and spoke w/pt. He was given [facility] contact info and made aware to contact [facility] when he arrives home so home O2 can be set up tonight for HS use. Questions answered. Pt denies having further discharge needs/concerns and thanked [facility] CON[facility] for information. Arron BREWSTER RN, CM
== END 2023-05-07 18:56 | disposition home or self-care (01) | DRG 516 ==
LOC: ED 13:45 → MS3 14:38
PROVIDERS: Internal Medicine; Orthopaedic Surgery; Admitting Provider Hospitalist; Emergency Provider Emergency Medicine; Visit Provider Internal Medicine
PROC: 01N80ZZ Release Thoracic Nerve, Open Approach (ICD-10-PCS; CPT 63030; principal; 2023-04-25 10:30)
DX: M48.04 Spinal stenosis, thoracic region (principal); Z68.41 Body mass index [BMI] 40.0-44.9, adult; N17.9 Acute kidney failure, unspecified; E66.01 Morbid (severe) obesity due to excess calories; I10 Essential (primary) hypertension; S39.82XA Other specified injuries of lower back, initial encounter; M47.814 Spondylosis without myelopathy or radiculopathy, thoracic region; G47.33 Obstructive sleep apnea (adult) (pediatric); S93.402A Sprain of unspecified ligament of left ankle, initial encounter; M10.9 Gout, unspecified; W10.1XXA Fall (on)(from) sidewalk curb, initial encounter; S60.411A Abrasion of left index finger, initial encounter; S60.415A Abrasion of left ring finger, initial encounter; Y99.0 Civilian activity done for income or pay; Z79.52 Long term (current) use of systemic steroids; Z79.899 Other long term (current) drug therapy
CPT/HCPCS: 36415; 71045; 72100; 72131; 72148; 72170; 73610; 76000; 80048; 80053; 83735; 84100; 85025; 85027; 85610; 93005; 94002; 94660; 94668; 94762; 97110; 97112; 97116; 97162; 97166; 97530; 97535; 99283; 99406; J7030; J7120; A4216; J2405